=== PATIENT | female | born 1965 | race American Indian/Alaskan Native ===

== ENCOUNTER 2017-03-07 15:39 | Emergency (ER) | payer MEDICAID ==
--- NOTE | 2017-03-07 16:28 | EDM.PDOC ---
ED HPI GENERAL MEDICAL PROBLEM - General Chief Complaint: General Stated Complaint: [facility] Time Seen by Provider: 03/07/17 16:25 Source of Information: Reports: Patient, EMS Notes Reviewed History Limitations: Reports: No Limitations - History of Present Illness INITIAL COMMENTS - FREE TEXT/NARRATIVE: pt did not have a ride to dialysis on Wednesday so she did not get there. She is now sob and is having nausea and abdomanal tightness. b Onset: Today Duration: Hour(s):, Resolved Prior to Arrival Location: Reports: Chest, Abdomen Associated Symptoms: Reports: Shortness of Breath, Other (pain in abdoman. ) - Related Data Allergies Allergy/AdvReac Type Severity Reaction Status Date / Time ibuprofen Allergy Cannot Verified 04/30/14 07:57 Remember NSAIDS (Non-Steroidal Allergy Cannot Verified 04/30/14 07:57 Anti-Inflamma Remember Home Meds: Home Meds Acetaminophen [Mapap] 500 mg PO Q4HR PRN 06/06/13 [History] Aspirin 81 mg PO DAILY 06/06/13 [History] Calcium Acetate [Calcium Acetate] 2 cap PO TID 06/06/13 [History] Gabapentin [Gabapentin] 300 mg PO QAM 06/06/13 [History] Insulin Glargine,Hum.Rec.Anlog [Lantus Solostar] 20 units SQ BEDTIME 06/06/13 [ History] Lisinopril [Lisinopril] 20 mg PO BID 06/06/13 [History] amLODIPine Besylate [Amlodipine Besylate] 5 mg PO BID 06/06/13 [History] atorvaSTATin [Lipitor] 40 mg PO BEDTIME 06/06/13 [History] Albuterol/Ipratropium [Combivent Respimat] 2 puff INH QID PRN 09/04/13 [History] Darbepoetin Donavan in Polysorbat [Aranesp] 0.3 ml IJ ASDIRECTED 02/23/14 [History] tiZANidine [Zanaflex] 4 mg PO TID PRN 02/23/14 [History] busPIRone [Buspar] 5 mg PO DAILY 03/22/14 [History] Escitalopram [Lexapro] 10 mg PO DAILY 03/27/14 [History] Famotidine [Pepcid] 20 mg PO DAILY 03/27/14 [History] buPROPion [Wellbutrin] 1 tab PO BID 03/27/14 [History] cloNIDine [Catapres] 0.1 mg PO TID 03/27/14 [History] Clopidogrel [Plavix] 75 mg PO DAILY 04/27/14 [History] Metoprolol Tartrate 12.5 mg PO BID 04/27/14 [History] Past Medical History - Past Health History Medical/Surgical History: Denies Medical/Surgical History Cardiovascular History: Reports: Heart Murmur [employer]OR History: Reports: Psychiatric History: Reports: Depression Endocrine/Metabolic History: Reports: Diabetes, Type II Hematologic History: Reports: Blood Transfusion(s) - Past Surgical History GI Surgical History: Reports: Cholecystectomy Musculoskeletal Surgical History: Reports: Amputation Social & Family History - Tobacco Use Smoking Status *Q: Never Smoker Years of Tobacco use: 15 Used Tobacco, but Quit: Yes Month Tobacco Last Used: 15 Second Hand Smoke Exposure: Yes - Caffeine Use Caffeine Use: Reports: None - Alcohol Use Days Per Week of Alcohol Use: 0 Number of Drinks Per Day: 7 Total Drinks Per Week: 0 - Recreational Drug Use Recreational Drug Use: No ED ROS GENERAL - Review of Systems Review Of Systems: See Below Constitutional: Reports: No Symptoms HEENT: Reports: No Symptoms Respiratory: Reports: Shortness of Breath Cardiovascular: Reports: No Symptoms Endocrine: Reports: No Symptoms GI/Abdominal: Reports: Other (pt is having feeling of tightness in the abdoman. ) : Reports: No Symptoms Musculoskeletal: Reports: No Symptoms Skin: Reports: No Symptoms ED EXAM, GENERAL - Physical Exam Exam: See Below Free Text/Narrative:: pt arrived with sob and tightness in her abdoman. . She has been nauseated. Exam Limited By: No Limitations General Appearance: Alert, Anxious, Moderate Distress Ears: Normal TMs Nose: Normal Inspection Throat/Mouth: Normal Inspection Neck: Normal Inspection Respiratory/Chest: Decreased Breath Sounds, Rales Cardiovascular: Regular Rate, Rhythm GI/Abdominal: Other (pt feels tight. ) (Female) Exam: Deferred Rectal (Female) Exam: Deferred Back Exam: Normal Inspection Extremities: Other (pt is a bilateral amputee) Neurological: Alert, Oriented, Normal Cognition Psychiatric: Normal Affect Course - Vital Signs Last Recorded V/S: Last Vital Signs Temp 36.6 C 03/07/17 15:52 Pulse 77 03/07/17 15:52 Resp 16 03/07/17 15:52 BP 126/52 L 03/07/17 15:52 Pulse Ox 99 03/07/17 15:52 - Orders/Labs/Meds Orders: Active Orders 24 hr Category Date Time Status EKG Documentation Completion [RC] ASDIRECTED Care 03/07/17 16:54 Active Abdomen 1V Flat [CR] Stat Exams 03/07/17 16:23 Taken Chest 1V Frontal [CR] Stat Exams 03/07/17 16:18 Stop Req Chest 2V [CR] Stat Exams 03/07/17 16:23 Taken PRO B-TYPE NATRIUR PEPT,BNPPRO [CHEM] Urgent Lab 03/07/17 16:50 Received UA W/MICROSCOPIC [URIN] Urgent Lab 03/07/17 16:18 Uncollected EKG 12 Lead [EK] Routine Ther 03/07/17 16:54 Ordered Labs: Laboratory Tests 03/07/17 03/07/17 03/07/17 Range/Units 16:28 16:31 16:31 WBC 10.0 (4.5-11.0) K/uL RBC 2.62 L (3.30-5.50) M/uL Hgb 8.6 L (12.0-15.0) g/dL Hct 26.5 L (36.0-48.0) % MCV 101 H (80-98) fL MCH 33 H (27-31) pg MCHC 33 (32-36) % Plt Count 278 (150-400) K/uL Neut % (Auto) 82 H (36-66) % Lymph % (Auto) 11 L (24-44) % [place] % (Auto) 4 (2-6) % Eos % (Auto) 3 (2-4) % Baso % (Auto) 1 (0-1) % Sodium 139 L (140-148) mmol/L Potassium 7.3 H* (3.6-5.2) mmol/L Chloride 99 L (100-108) mmol/L Carbon Dioxide 27 (21-32) mmol/L Anion Gap 20.3 H (5.0-14.0) mmol/L BUN 78 H* (7-18) mg/dL Creatinine 12.1 H* (0.6-1.0) mg/dL Est Cr Clr Drug Dosing TNP Estimated GFR (MDRD) 3 L (>60) Glucose 143 H (74-106) mg/dL Calcium 7.4 L (8.5-10.1) mg/dL Total Bilirubin 0.4 (0.2-1.0) mg/dL AST 18 (15-37) U/L ALT 17 (12-78) U/L Alkaline Phosphatase 79 (46-116) U/L Total Protein 7.8 (6.4-8.2) g/dL Albumin 3.2 L (3.4-5.0) g/dL Globulin 4.6 H (2.3-3.5) g/dL Albumin/Globulin Ratio 0.7 L (1.2-2.2) Lipase 196 (73-393) U/L - Re-Assessments/Exams Free Text/Narrative Re-Assessment/Exam: 03/07/17 17:30 k was found to be 7.3. She was given kexylate 15 po. She was also given lasix 80mg iv. The case was discussed with [facility] and she will be transfered there for in patient dialysis. 03/07/17 17:39 Departure - Departure Time of Disposition: 17:41 Disposition: DC/Tfer to Acute Hospital 02 Condition: fair Clinical Impression: Renal failure, Hyperkalemia, Fluid overload - Discharge Information Forms: ED Department Discharge Care Plan Goals: transfer to [facility]-- will need medicare sales representative in route - My Orders Last 24 Hours: My Active Orders 03/07/17 16:18 Chest 1V Frontal [CR] Stat UA W/MICROSCOPIC [URIN] Urgent 03/07/17 16:23 Abdomen 1V Flat [CR] Stat Chest 2V [CR] Stat 03/07/17 16:50 PRO B-TYPE NATRIUR PEPT,BNPPRO [CHEM] Urgent 03/07/17 16:54 EKG Documentation Completion [RC] ASDIRECTED EKG 12 Lead [EK] Routine - Assessment/Plan Last 24 Hours: My Active Orders 03/07/17 16:18 Chest 1V Frontal [CR] Stat UA W/MICROSCOPIC [URIN] Urgent 03/07/17 16:23 Abdomen 1V Flat [CR] Stat Chest 2V [CR] Stat 03/07/17 16:50 PRO B-TYPE NATRIUR PEPT,BNPPRO [CHEM] Urgent 06/04/17 16:54 EKG Documentation Completion [RC] ASDIRECTED EKG 12 Lead [EK] Routine
[2017-03-07] MEDS ORDERED: Sodium Polystyrene Sulfonate 15 GM/60 ML Susp 60 ML Bot PO ONE ×2 (17:35→17:51)
[2017-03-07] MEDS ORDERED: Furosemide 40 MG/4 ML VIAL IVPUSH ONE (17:38)
[2017-03-07 18:02] VITALS: BP 125/67
--- NOTE | 2017-03-08 09:03 | CR ---
Upright abdomen There are a few scattered air-fluid levels throughout the bowel. There is no large or small bowel di stention. There is no evidence for free air. Impression: 1. No acute findings.
--- NOTE | 2017-03-08 09:06 | CR ---
2 view chest Comparison: February 2014. Shallow lung findings are demonstrated. This creates mild prominence of the cardiac silhouette and v ascular structures. There are no infiltrates or effusions. Impression: 1. Decreased lung volumes. 2. No acute findings.
== END 2017-03-07 18:26 ==
LOC: JP.ED 15:39
DX: N19 Unspecified kidney failure (principal); E87.5 Hyperkalemia; E87.70 Fluid overload, unspecified; F32.9 Major depressive disorder, single episode, unspecified; E11.9 Type 2 diabetes mellitus without complications; Z90.49 Acquired absence of other specified parts of digestive tract; Z79.02 Long term (current) use of antithrombotics/antiplatelets; Z79.82 Long term (current) use of aspirin; Z79.4 Long term (current) use of insulin; Z79.899 Other long term (current) drug therapy; Z88.8 Allergy status to other drugs, medicaments and biological substances
CPT/HCPCS: 36415; 71020; 74000; 80053; 83690; 83880; 85025; 93005; 99285; A9270; J1940; 93010

== ENCOUNTER 2017-03-22 15:54 | Emergency (ER) | payer MEDICAID ==
--- NOTE | 2017-03-22 18:01 | EDM.PDOC ---
ED HPI GENERAL MEDICAL PROBLEM - General Chief Complaint: General Stated Complaint: MED VIA AMBULANCE HAVING A HARD TIME BREATHING Time Seen by Provider: 03/22/17 17:25 Source of Information: Reports: Patient History Limitations: Reports: No Limitations - History of Present Illness INITIAL COMMENTS - FREE TEXT/NARRATIVE: Patient presents today with complaints of not having dialysis for 4 days. She reports she missed her run last . Associated Symptoms: Reports: No Other Symptoms - Related Data Allergies Allergy/AdvReac Type Severity Reaction Status Date / Time ibuprofen Allergy Cannot Verified 03/22/17 17:01 Remember NSAIDS (Non-Steroidal Allergy Cannot Verified 03/22/17 17:01 Anti-Inflamma Remember Home Meds: Home Meds Acetaminophen [Mapap] 500 mg PO Q4HR PRN 06/06/13 [History] Calcium Acetate [Calcium Acetate] 2 cap PO TID 06/06/13 [History] Gabapentin [Gabapentin] 300 mg PO QAM 06/06/13 [History] Insulin Glargine,Hum.Rec.Anlog [Lantus Solostar] 20 units SQ BEDTIME 06/06/13 [ History] Lisinopril [Lisinopril] 20 mg PO BID 06/06/13 [History] RX: Aspirin 81 mg PO DAILY 06/06/13 [History] amLODIPine Besylate [Amlodipine Besylate] 5 mg PO BID 06/06/13 [History] atorvaSTATin [Lipitor] 40 mg PO BEDTIME 06/06/13 [History] Albuterol/Ipratropium [Combivent Respimat] 2 puff INH QID PRN 09/04/13 [History] Darbepoetin [place] in Polysorbat [Aranesp] 0.3 ml IJ ASDIRECTED 02/23/14 [History] RX: tiZANidine [Zanaflex] 4 mg PO TID PRN 02/23/14 [History] busPIRone [Buspar] 5 mg PO DAILY 03/22/14 [History] Escitalopram [Lexapro] 10 mg PO DAILY 03/27/14 [History] Famotidine [Pepcid] 20 mg PO DAILY 03/27/14 [History] RX: cloNIDine [Catapres] 0.1 mg PO TID 03/27/14 [History] buPROPion [Wellbutrin] 1 tab PO BID 03/27/14 [History] Clopidogrel [Plavix] 75 mg PO DAILY 04/27/14 [History] RX: Metoprolol Tartrate 12.5 mg PO BID 04/27/14 [History] Past Medical History - Past Health History Medical/Surgical History: Denies Medical/Surgical History HEENT History: Reports: Cataract, Impaired Vision Cardiovascular History: Reports: CAD, Heart Murmur, High Cholesterol, Hypertension Respiratory History: Reports: Pneumonia, Recurrent, Other (See Below) Other Respiratory History: reactive airway Gastrointestinal History: Reports: Cholelithiasis, GERD, GI Bleed, Other (See Below) Other Gastrointestinal History: bleeding ulcer Genitourinary History: Reports: Acute Renal Failure, Dialysis Other Genitourinary History: Dialysis 3 times a week since 2013 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: , Spontaneous Psychiatric History: Reports: Addiction, Anxiety, Depression, Panic Attack Endocrine/Metabolic History: Reports: Diabetes, Type II Hematologic History: Reports: Blood Transfusion(s) - Infectious Disease History Infectious Disease History: Reports: Other (See Below) Other Infectious Disease History: unknown - Past Surgical History GI Surgical History: Reports: Cholecystectomy, Colonoscopy, EGD Musculoskeletal Surgical History: Reports: Amputation Other Musculoskeletal Surgeries/Procedures:: bilateral above the knee Social & Family History - Tobacco Use Smoking Status *Q: Former Smoker Years of Tobacco use: 15 Used Tobacco, but Quit: Yes Month Tobacco Last Used: 10 years ago Second Hand Smoke Exposure: Yes - Caffeine Use Caffeine Use: Reports: Coffee, Soda - Alcohol Use Days Per Week of Alcohol Use: 0 Number of Drinks Per Day: 7 Total Drinks Per Week: 0 - Recreational Drug Use Recreational Drug Use: No Recreational Drug Type: Reports: Amphetamines (Speed) ED [facility] GENERAL - Review of Systems Review Of Systems: See Below Constitutional: Reports: Malaise, Weakness, Fatigue. Denies: Fever, Chills, Night Sweats, Diaphoresis HEENT: Reports: No Symptoms Respiratory: Denies: Shortness of Breath, Wheezing, Cough, Hemoptysis Cardiovascular: Denies: Chest Pain, Dyspnea on Exertion, Edema, Lightheadedness , Orthopnea, Palpitations, PND, Syncope Endocrine: Reports: Fatigue GI/Abdominal: Denies: Abdominal Pain, Difficulty Swallowing, Hematemesis, Nausea , Vomiting : Reports: No Symptoms Musculoskeletal: Reports: No Symptoms Skin: Reports: Bruising, Other (Bruising to RLQ, patient reprots I've had that, I didn't get hurt. ). Denies: Cyanosis, Jaundice, Mottled, Rash, Erythema, Wound, Lesions Neurological: Denies: Confusion, Dizziness, Headache, Numbness, Paresthesia, Syncope, Tingling, Weakness, Change in Speech Psychiatric: Reports: No Symptoms Hematologic/Lymphatic: Reports: No Symptoms Immunologic: Reports: No Symptoms ED EXAM, GENERAL - Physical Exam Exam: See Below Exam Limited By: No Limitations General Appearance: Alert, WD/WN, No Apparent Distress, Obese, Other (Patient states, "I feel tired". ) Eye Exam: Bilateral Eye: Normal Inspection, PERRL Ears: Normal External Exam, Normal Canal, Hearing Grossly Normal, Normal TMs Ear Exam: Bilateral Ear: Auricle Normal, Canal Normal, TM normal Nose: Normal Inspection, Normal Mucosa, No Blood Throat/Mouth: Normal Inspection, Normal Lips, Normal Teeth, Normal Gums, Normal Oropharynx, Normal Voice, No Airway Compromise Head: Atraumatic, Normocephalic Neck: Normal Inspection, Supple, Non-Tender, Full Range of Motion Respiratory/Chest: No Respiratory Distress, No Accessory Muscle Use, Chest Non- Tender, Decreased Breath Sounds Cardiovascular: Normal Peripheral Pulses, No Edema, No Gallop, No Rub, Other ( Slight murmur noted. EKG shows Mobitz type two heart block, rate of 64 bpm. ) GI/Abdominal: Normal Bowel Sounds, Soft, Non-Tender, No Organomegaly, No Mass, Other (large, round) Back Exam: Normal Inspection, Full Range of Motion. No: CVA Tenderness (R), CVA Tenderness (L) Extremities: Normal Inspection, Normal Range of Motion, Non-Tender, Normal Capillary Refill, Other (Bilateral lower leg amputee. ) Neurological: Alert, Oriented, CN II-XII Intact, Normal Cognition, Other ( sleepy at times.) Skin Exam: Warm, Dry, Intact, Normal Color, No Rash Lymphatic: No Adenopathy EKG INTERPRETATION EKG Date: 03/22/17 Rhythm: Other (Mobitz type two heart block.) P-Wave: Present QRS: Normal Course - Vital Signs Last Recorded V/S: Last Vital Signs Temp 36.1 C 03/22/17 16:58 Pulse 67 03/22/17 17:37 Resp 14 03/22/17 17:37 BP 209/109 H 03/22/17 17:37 Pulse Ox 95 03/22/17 17:37 - Orders/Labs/Meds Orders: Active Orders 24 hr Category Date Time Status Cardiac Monitoring [RC] .As Directed Care 03/22/17 18:17 Active EKG Documentation Completion [RC] ASDIRECTED Care 03/22/17 17:08 Active Sodium Chloride 0.9% [Saline Flush] Med 03/22/17 18:17 Active 10 ml FLUSH ASDIRECTED PRN Saline Lock Insert [OM.PC] Routine Oth 03/22/17 18:17 Ordered EKG 12 Lead [EK] Routine Ther 03/22/17 17:07 Ordered Medication Orders Sodium Chloride (Saline Flush) 10 ml FLUSH ASDIRECTED PRN PRN Reason: Keep Vein Open Last Admin: 03/22/17 18:43 Dose: 10 ml Labs: Laboratory Tests 03/22/17 03/22/17 03/22/17 Range/Units 17:28 17:28 17:28 WBC 8.2 (4.5-11.0) K/uL RBC 2.58 L (3.30-5.50) M/uL Hgb 8.4 L (12.0-15.0) g/dL Hct 26.1 L (36.0-48.0) % MCV 101 H (80-98) fL MCH 33 H (27-31) pg MCHC 32 (32-36) % Plt Count 265 (150-400) K/uL Neut % (Auto) 72 H (36-66) % Lymph % (Auto) 17 L (24-44) % [place]ard % (Auto) 7 H (2-6) % Eos % (Auto) 4 (2-4) % Baso % (Auto) 0 (0-1) % Puncture Site ABG pH (7.350-7.450) ABG pCO2 (35.0-42.0) mmHg ABG pO2 (75.0-100.0) mmHg ABG HCO3 (22.0-26.0) mmol/L ABG Total CO2 (21.0-25.0) mmol/L ABG O2 Saturation (95.0-98.0) % ABG O2 Content (15.0-23.0) %vol ABG Base Excess mm/L ABG Hemoglobin (12.0-16.0) g/dL ABG Oxyhemoglobin % ABG Carboxyhemoglobin (0.0-1.6) % ABG Methemoglobin % Chris Test O2 Delivery Device Sodium 142 (140-148) mmol/L Potassium 5.3 H (3.6-5.2) mmol/L Chloride 102 (100-108) mmol/L Carbon Dioxide 28 (21-32) mmol/L Anion Gap 17.3 H (5.0-14.0) mmol/L BUN 84 H* (7-18) mg/dL Creatinine 11.5 H* (0.6-1.0) mg/dL Est Cr Clr Drug Dosing TNP Estimated GFR (MDRD) 3 L (>60) Glucose 165 H (74-106) mg/dL Calcium 8.1 L (8.5-10.1) mg/dL Total Bilirubin 0.4 (0.2-1.0) mg/dL AST 14 L (15-37) U/L ALT 10 L (12-78) U/L Alkaline Phosphatase 83 (46-116) U/L Ammonia (11-32) mmol/L [id number] Pept 11724 H (5-125) pg/mL Total Protein 7.3 (6.4-8.2) g/dL Albumin 3.0 L (3.4-5.0) g/dL Globulin 4.3 H (2.3-3.5) g/dL Albumin/Globulin Ratio 0.7 L (1.2-2.2) 03/22/17 03/22/17 Range/Units 17:30 17:30 WBC (4.5-11.0) K/uL RBC (3.30-5.50) M/uL Hgb (12.0-15.0) g/dL Hct (36.0-48.0) % MCV (80-98) fL MCH (27-31) pg MCHC (32-36) % Plt Count (150-400) K/uL Neut % (Auto) (36-66) % Lymph % (Auto) (24-44) % [place]ard % (Auto) (2-6) % Eos % (Auto) (2-4) % Baso % (Auto) (0-1) % Puncture Site Rt radial ABG pH 7.431 (7.350-7.450) ABG pCO2 39.1 (35.0-42.0) mmHg ABG pO2 67.2 L (75.0-100.0) mmHg ABG HCO3 25.5 (22.0-26.0) mmol/L ABG Total CO2 24.3 (21.0-25.0) mmol/L ABG O2 Saturation 92.7 L (95.0-98.0) % ABG O2 Content 10.1 L (15.0-23.0) %vol ABG Base Excess 1.7 mm/L ABG Hemoglobin 7.8 L (12.0-16.0) g/dL ABG Oxyhemoglobin 90.7 % ABG Carboxyhemoglobin 1.3 (0.0-1.6) % ABG Methemoglobin 0.9 % Chris Test Passed O2 Delivery Device Room air Sodium (140-148) mmol/L Potassium (3.6-5.2) mmol/L Chloride (100-108) mmol/L Carbon Dioxide (21-32) mmol/L Anion Gap (5.0-14.0) mmol/L BUN (7-18) mg/dL Creatinine (0.6-1.0) mg/dL Est Cr Clr Drug Dosing Estimated GFR (MDRD) (>60) Glucose (74-106) mg/dL Calcium (8.5-10.1) mg/dL Total Bilirubin (0.2-1.0) mg/dL AST (15-37) U/L ALT (12-78) U/L Alkaline Phosphatase (46-116) U/L Ammonia 13 (11-32) mmol/L [id number] Pept (5-125) pg/mL Total Protein (6.4-8.2) g/dL Albumin (3.4-5.0) g/dL Globulin (2.3-3.5) g/dL Albumin/Globulin Ratio (1.2-2.2) Will place patient on 1 to 2 L O2 per nasal cannula. Meds: Medications Generic Name Dose Route Start Last Admin Trade Name Freq PRN Reason Stop Dose Admin Sodium Chloride 10 ml 03/22/17 18:17 03/22/17 18:43 Saline Flush FLUSH 10 ml ASDIRECTED PRN Administration Keep Vein Open - Re-Assessments/Exams Free Text/Narrative Re-Assessment/Exam: 03/22/17 1800 Patient notified of lab work, need for dialysis. All her questions were answered, she is in agreement with plan. 03/22/17 18:25 [facility] notified of patient status. Dr. Willett accepts patient. Patient will be a direct admission to med-surg. Patient in agreement with plan. Departure - Departure Time of Disposition: 18:25 Disposition: DC/Tfer to Medicaid Nur Fac 64 Condition: Poor Clinical Impression: Chronic kidney disease (CKD), CHF (congestive heart failure), Dialysis patient , noncompliant - Discharge Information Referrals: PCP,None [Primary Care Provider] - Forms: ED Department Discharge - My Orders Last 24 Hours: My Active Orders 03/22/17 17:07 EKG 12 Lead [EK] Routine 03/22/17 17:08 EKG Documentation Completion [RC] ASDIRECTED 03/22/17 18:17 Cardiac Monitoring [RC] .As Directed Sodium Chloride 0.9% [Saline Flush] 10 ml FLUSH ASDIRECTED PRN Saline Lock Insert [OM.PC] Routine - Assessment/Plan Last 24 Hours: My Active Orders 03/22/17 17:07 EKG 12 Lead [EK] Routine 03/22/17 17:08 EKG Documentation Completion [RC] ASDIRECTED 03/22/17 18:17 Cardiac Monitoring [RC] .As Directed Sodium Chloride 0.9% [Saline Flush] 10 ml FLUSH ASDIRECTED PRN Saline Lock Insert [OM.PC] Routine Assessment:: Noncompliance with dialysis CKD CHF Plan: Patient will be transferred to [facility]. She was accepted per Dr. Willett to be admitted to med-surg.
[2017-03-22] MEDS ORDERED: Sodium Chloride 0.9% 10 ML Syringe FLUSH PRN (18:17)
[2017-03-22 19:11] VITALS: BP 195/100
== END 2017-03-22 19:31 ==
LOC: JP.ED 15:54
DX: I13.0 Hypertensive heart and chronic kidney disease with heart failure and stage 1 through stage 4 chronic kidney disease, or unspecified chronic kidney disease (principal); E11.22 Type 2 diabetes mellitus with diabetic chronic kidney disease; N18.9 Chronic kidney disease, unspecified; I50.9 Heart failure, unspecified; Z99.2 Dependence on renal dialysis; E78.00 Pure hypercholesterolemia, unspecified; K21.9 Gastro-esophageal reflux disease without esophagitis; F41.9 Anxiety disorder, unspecified; F32.9 Major depressive disorder, single episode, unspecified; Z90.49 Acquired absence of other specified parts of digestive tract; Z79.4 Long term (current) use of insulin; Z79.899 Other long term (current) drug therapy; Z88.6 Allergy status to analgesic agent; Z88.8 Allergy status to other drugs, medicaments and biological substances
CPT/HCPCS: 36415; 80053; 82140; 82803; 83880; 85025; 93005; 99284; J7050; 36600; 93010; 99285

== ENCOUNTER 2017-10-10 21:31 | Emergency (ER) | payer MEDICAID ==
[~2017-10-10 21:31] MED LIST: LORazepam 2 MG/ML MDV ONE
[2017-10-10] MEDS ORDERED: LORazepam 2 MG/ML MDV IVPUSH ONE ×2 (21:33→21:36)
[2017-10-10] MEDS ORDERED: Sodium Chloride 0.9% 1,000 ML IV SCH (21:45)
[2017-10-10 22:27] VITALS: BP 208/84
[2017-10-10] MEDS ORDERED: Sodium Polystyrene Sulfonate 15 GM/60 ML Susp 60 ML Bot PO ONE (22:38)
--- NOTE | 2017-10-10 22:43 | EDM.PDOC ---
ED HPI GENERAL MEDICAL PROBLEM - General Chief Complaint: Neurological Problem Stated Complaint: ILLNESS Time Seen by Provider: 10/10/17 22:25 Source of Information: Reports: Patient History Limitations: Reports: Other (pt is not able to give a history. She is not a regular pt here. She had a sizure shortly after arrival. She normally does not have seizure activity. There is no record when she had here last dialysis) - History of Present Illness Onset: Gradual Duration: Hour(s): Location: Reports: Other ( Pt has sizure activity. ) Associated Symptoms: Reports: Confusion, Seizure - Related Data Allergies Allergy/AdvReac Type Severity Reaction Status Date / Time ibuprofen Allergy Cannot Verified 03/22/17 17:01 Remember NSAIDS (Non-Steroidal Allergy Cannot Verified 03/22/17 17:01 Anti-Inflamma Remember Home Meds: Home Meds Acetaminophen [Mapap] 500 mg PO Q4HR PRN 06/06/13 [History] Aspirin 81 mg PO DAILY 06/06/13 [History] Calcium Acetate [Calcium Acetate] 2 cap PO TID 06/06/13 [History] Gabapentin [Gabapentin] 300 mg PO QAM 06/06/13 [History] Insulin Glargine,Hum.Rec.Anlog [Lantus Solostar] 20 units SQ BEDTIME 06/06/13 [ History] Lisinopril [Lisinopril] 20 mg PO BID 06/06/13 [History] amLODIPine Besylate [Amlodipine Besylate] 5 mg PO BID 06/06/13 [History] atorvaSTATin [Lipitor] 40 mg PO BEDTIME 06/06/13 [History] Albuterol/Ipratropium [Combivent Respimat] 2 puff INH QID PRN 09/04/13 [History] Darbepoetin Donavan in Polysorbat [Aranesp] 0.3 ml IJ ASDIRECTED 02/23/14 [History] tiZANidine [Zanaflex] 4 mg PO TID PRN 02/23/14 [History] busPIRone [Buspar] 5 mg PO DAILY 03/22/14 [History] Escitalopram [Lexapro] 10 mg PO DAILY 03/27/14 [History] Famotidine [Pepcid] 20 mg PO DAILY 03/27/14 [History] buPROPion [Wellbutrin] 1 tab PO BID 03/27/14 [History] cloNIDine [Catapres] 0.1 mg PO TID 03/27/14 [History] Clopidogrel [Plavix] 75 mg PO DAILY 04/27/14 [History] Metoprolol Tartrate 12.5 mg PO BID 04/27/14 [History] Past Medical History - Past Health History Medical/Surgical History: Denies Medical/Surgical History HEENT History: Reports: Cataract, Impaired Vision Cardiovascular History: Reports: CAD, Heart Murmur, High Cholesterol, Hypertension Respiratory History: Reports: Pneumonia, Recurrent, Other (See Below) Other Respiratory History: reactive airway Gastrointestinal History: Reports: Cholelithiasis, GERD, GI Bleed, Other (See Below) Other Gastrointestinal History: bleeding ulcer Genitourinary History: Reports: Acute Renal Failure, Dialysis Other Genitourinary History: Dialysis 3 times a week since 2013 [employer] History: Reports: , Spontaneous Psychiatric History: Reports: Addiction, Anxiety, Depression, Panic Attack Endocrine/Metabolic History: Reports: Diabetes, Type II Hematologic History: Reports: Blood Transfusion(s) - Infectious Disease History Infectious Disease History: Reports: Other (See Below) Other Infectious Disease History: unknown - Past Surgical History GI Surgical History: Reports: Cholecystectomy, Colonoscopy, EGD Musculoskeletal Surgical History: Reports: Amputation Other Musculoskeletal Surgeries/Procedures:: bilateral above the knee Social & Family History - Tobacco Use Smoking Status *Q: Unknown Ever Smoked Years of Tobacco use: 15 Used Tobacco, but Quit: Yes Month Tobacco Last Used: 10 years ago Second Hand Smoke Exposure: Yes - Caffeine Use Caffeine Use: Reports: Coffee, Soda - Alcohol Use Days Per Week of Alcohol Use: 0 Number of Drinks Per Day: 7 Total Drinks Per Week: 0 - Recreational Drug Use Recreational Drug Use: No Recreational Drug Type: Reports: Amphetamines (Speed) ED ROS GENERAL - Review of Systems Review Of Systems: See Below Constitutional: Reports: No Symptoms HEENT: Reports: No Symptoms Respiratory: Reports: No Symptoms Cardiovascular: Reports: No Symptoms Endocrine: Reports: No Symptoms GI/Abdominal: Reports: No Symptoms : Reports: No Symptoms Musculoskeletal: Reports: Hand Pain Neurological: Reports: Confusion, Seizure, Other Psychiatric: Reports: Anxiety ED EXAM, NEURO - Physical Exam Exam: See Below Text/Narrative:: Pt had a seizure shortly after arrival. She was posictal when she was examined. She evidently had missd her dialysis. She is a diabetic and is a bilateral amputee Exam Limited By: Other (not able to get a acurate history.) General Appearance: Mild Distress, Other (pupils are equal and ractive. ) Ears: Normal TMs Nose: Normal Inspection Throat/Mouth: Other (pt had chewed her tongue) Head Exam: Atraumatic Neck: Other (multiple ) Respiratory/Chest: No Respiratory Distress Cardiovascular: Other ( slightly irregular. Pacs. ) GI/Abdominal: Soft, Non-Tender (Female) Exam: Deferred Rectal (Female) Exam: Deferred Neurological: Other (pt was post ictal. ) Back Exam: Normal Inspection Extremities: Other (pt is a bilateral amputee) Psychiatric: Other (pt was post ictal. ) Course - Vital Signs Last Recorded V/S: Last Vital Signs Temp 36.8 C 10/10/17 22:24 Pulse 85 10/10/17 22:24 Resp 12 10/10/17 22:24 BP 208/84 H 10/10/17 22:24 Pulse Ox 98 10/10/17 22:24 - Orders/Labs/Meds Orders: Active Orders 24 hr Category Date Time Status EKG Documentation Completion [RC] ASDIRECTED Care 10/10/17 21:35 Active Chest 1V Frontal [CR] Stat Exams 10/10/17 21:37 Taken Head wo Cont [CT] Stat Exams 10/10/17 21:44 Taken Sodium Chloride 0.9% [Normal Saline] 1,000 ml Med 10/10/17 21:45 Active IV ASDIRECTED EKG 12 Lead [EK] Routine Ther 10/10/17 21:35 Ordered Medication Orders Sodium Chloride (Normal Saline) 1,000 mls @ 150 mls/hr IV ASDIRECTED IRMA Last Admin: 10/10/17 22:18 Dose: 150 mls/hr Labs: Laboratory Tests 10/10/17 10/10/17 10/10/17 Range/Units 21:41 21:41 21:41 WBC 12.1 H (4.5-11.0) K/uL RBC 4.08 (3.30-5.50) M/uL Hgb 12.2 D (12.0-15.0) g/dL Hct 37.2 (36.0-48.0) % MCV 91 (80-98) fL MCH 30 (27-31) pg MCHC 33 (32-36) % Plt Count 237 (150-400) K/uL Neut % (Auto) 64 (36-66) % Lymph % (Auto) 21 L (24-44) % Monroe % (Auto) 5 (2-6) % Eos % (Auto) 9 H (2-4) % Baso % (Auto) 0 (0-1) % Sodium 137 L (140-148) mmol/L Potassium 6.2 H* (3.6-5.2) mmol/L Chloride 93 L (100-108) mmol/L Carbon Dioxide 23 (21-32) mmol/L Anion Gap 27.2 H (5.0-14.0) mmol/L BUN 94 H* (7-18) mg/dL Creatinine 12.7 H* (0.6-1.0) mg/dL Est Cr Clr Drug Dosing TNP Estimated GFR (MDRD) 3 L (>60) Glucose 93 (74-106) mg/dL Calcium 8.0 L (8.5-10.1) mg/dL Total Bilirubin 0.8 D (0.2-1.0) mg/dL AST 41 H D (15-37) U/L ALT 85 H (12-78) U/L Alkaline Phosphatase 116 (46-116) U/L Total Protein 8.3 H (6.4-8.2) g/dL Albumin 3.5 (3.4-5.0) g/dL Globulin 4.8 H (2.3-3.5) g/dL Albumin/Globulin Ratio 0.7 L (1.2-2.2) Urine Color Urine Appearance Urine pH (4.5-8.0) Ur Specific [place] (1.008-1.030) Urine Protein (NEGATIVE) mg/dL Urine Glucose (UA) (NEGATIVE) mg/dL Urine Ketones (NEGATIVE) mg/dL Urine Occult Blood (NEGATIVE) Urine Nitrite (NEGATIVE) Urine Bilirubin (NEGATIVE) Urine Urobilinogen (NORMAL) mg/dL Ur Leukocyte Esterase (NEGATIVE) Urine RBC (0-5) Urine WBC (0-5) Ur Epithelial Cells Amorphous Sediment Urine Bacteria Urine Mucus Urine Opiates Screen (NEGATIVE) Ur Oxycodone Screen (NEGATIVE) Urine Methadone Screen (NEGATIVE) Ur Propoxyphene Screen (NEGATIVE) Ur Barbiturates Screen (NEGATIVE) Ur Tricyclics Screen (NEGATIVE) Ur Phencyclidine Scrn (NEGATIVE) Ur Amphetamine Screen (NEGATIVE) U Methamphetamines Scrn (NEGATIVE) Urine MDMA Screen (NEGATIVE) U Benzodiazepines Scrn (NEGATIVE) U Cocaine Metab Screen (NEGATIVE) U Marijuana (THC) Screen (NEGATIVE) Ethyl Alcohol 3 mg/dL 10/10/17 10/10/17 Range/Units 22:03 22:03 WBC (4.5-11.0) K/uL RBC (3.30-5.50) M/uL Hgb (12.0-15.0) g/dL Hct (36.0-48.0) % MCV (80-98) fL MCH (27-31) pg MCHC (32-36) % Plt Count (150-400) K/uL Neut % (Auto) (36-66) % Lymph % (Auto) (24-44) % Monroe % (Auto) (2-6) % Eos % (Auto) (2-4) % Baso % (Auto) (0-1) % Sodium (140-148) mmol/L Potassium (3.6-5.2) mmol/L Chloride (100-108) mmol/L Carbon Dioxide (21-32) mmol/L Anion Gap (5.0-14.0) mmol/L BUN (7-18) mg/dL Creatinine (0.6-1.0) mg/dL Est Cr Clr Drug Dosing Estimated GFR (MDRD) (>60) Glucose (74-106) mg/dL Calcium (8.5-10.1) mg/dL Total Bilirubin (0.2-1.0) mg/dL AST (15-37) U/L ALT (12-78) U/L Alkaline Phosphatase (46-116) U/L Total Protein (6.4-8.2) g/dL Albumin (3.4-5.0) g/dL Globulin (2.3-3.5) g/dL Albumin/Globulin Ratio (1.2-2.2) Urine Color Yellow Urine Appearance Clear Urine pH 8.0 (4.5-8.0) Ur Specific [place] 1.015 (1.008-1.030) Urine Protein 500 H (NEGATIVE) mg/dL Urine Glucose (UA) 50 H (NEGATIVE) mg/dL Urine Ketones Negative (NEGATIVE) mg/dL Urine Occult Blood Negative (NEGATIVE) Urine Nitrite Negative (NEGATIVE) Urine Bilirubin Negative (NEGATIVE) Urine Urobilinogen Normal (NORMAL) mg/dL Ur Leukocyte Esterase Negative (NEGATIVE) Urine RBC 0-5 (0-5) Urine WBC 0-5 (0-5) Ur Epithelial Cells Rare Amorphous Sediment Not seen Urine Bacteria Rare Urine Mucus Not seen Urine Opiates Screen Positive H (NEGATIVE) Ur Oxycodone Screen Negative (NEGATIVE) Urine Methadone Screen Negative (NEGATIVE) Ur Propoxyphene Screen Negative (NEGATIVE) Ur Barbiturates Screen Negative (NEGATIVE) Ur Tricyclics Screen Negative (NEGATIVE) Ur Phencyclidine Scrn Negative (NEGATIVE) Ur Amphetamine Screen Negative (NEGATIVE) U Methamphetamines Scrn Negative (NEGATIVE) Urine MDMA Screen Negative (NEGATIVE) U Benzodiazepines Scrn Negative (NEGATIVE) U Cocaine Metab Screen Negative (NEGATIVE) U Marijuana (THC) Screen Negative (NEGATIVE) Ethyl Alcohol mg/dL Meds: Medications Generic Name Dose Route Start Last Admin Trade Name Freq PRN Reason Stop Dose Admin Sodium Chloride 1,000 mls @ 150 mls/hr 10/10/17 21:45 10/10/17 22:18 Normal Saline IV 150 mls/hr ASDIRECTED IRMA Administration Discontinued Medications Generic Name Dose Route Start Last Admin Trade Name Freq PRN Reason Stop Dose Admin Labetalol HCl 20 mg 10/10/17 22:54 Normodyne IVPUSH 10/10/17 22:55 NOW ONE Protocol Lorazepam 0.5 mg 10/10/17 21:33 10/10/17 22:17 Ativan IVPUSH 10/10/17 21:34 0.5 mg ONETIME ONE Administration Lorazepam 0.5 mg 10/10/17 21:36 10/10/17 22:18 Ativan IVPUSH 10/10/17 21:37 0.5 mg ONETIME ONE Administration Sodium Polystyrene Sulfonate 30 gm 10/10/17 22:38 Kayexalate PO 10/10/17 22:39 ONETIME ONE Sodium Polystyrene Sulfonate 45 gm 10/10/17 22:54 Kayexalate RECTAL 10/10/17 22:55 NOW ONE - Re-Assessments/Exams Free Text/Narrative Re-Assessment/Exam: 10/10/17 23:08 pt was given 1 mg of ativan. -- for the seizure activity. She has fluids running at 150, She was given kexlate 45 mg rectally. Labatiol was given 20mg iv. Departure - Departure Time of Disposition: 23:10 Disposition: DC/Tfer to Acute Hospital 02 Condition: Fair Clinical Impression: Hyperkalemia, Renal failure, Seizure - Discharge Information Referrals: PCP,None [Primary Care Provider] - Forms: ED Department Discharge Care Plan Goals: transfer to [facility] - My Orders Last 24 Hours: My Active Orders 10/10/17 21:35 EKG Documentation Completion [RC] ASDIRECTED EKG 12 Lead [EK] Routine 10/10/17 21:37 Chest 1V Frontal [CR] Stat 10/10/17 21:44 Head wo Cont [CT] Stat 10/10/17 21:45 Sodium Chloride 0.9% [Normal Saline] 1,000 ml IV ASDIRECTED - Assessment/Plan Last 24 Hours: My Active Orders 10/10/17 21:35 EKG Documentation Completion [RC] ASDIRECTED EKG 12 Lead [EK] Routine 10/10/17 21:37 Chest 1V Frontal [CR] Stat 10/10/17 21:44 Head wo Cont [CT] Stat 10/10/17 21:45 Sodium Chloride 0.9% [Normal Saline] 1,000 ml IV ASDIRECTED
[2017-10-10] MEDS ORDERED: Labetalol 20 MG/4 ML Syringe IVPUSH ONE (22:54)
[2017-10-10] MEDS ORDERED: Sodium Polystyrene Sulfonate 15 GM/60 ML Susp 60 ML Bot RECTAL ONE (22:54)
[2017-10-10] MEDS ORDERED: Sodium Polystyrene Sulfonate 15 GM/60 ML Susp 60 ML Bot ONE (23:00)
--- NOTE | 2017-10-11 10:23 | CR ---
Chest 1V Frontal HISTORY: Shortness of breath COMPARISON: 10/07/2016. FINDINGS: Left-sided dialysis type catheter. Stable mild cardiomegaly. Very faint interstitial change s in the mid and lower lung zones computer present mild interstitial edema or inflammatory process.
== END 2017-10-10 23:46 ==
LOC: JP.ED 21:31
DX: R56.9 Unspecified convulsions (principal); E87.5 Hyperkalemia; N19 Unspecified kidney failure; I10 Essential (primary) hypertension; E11.9 Type 2 diabetes mellitus without complications; E78.00 Pure hypercholesterolemia, unspecified; K21.9 Gastro-esophageal reflux disease without esophagitis; Z88.6 Allergy status to analgesic agent; Z88.8 Allergy status to other drugs, medicaments and biological substances; Z79.899 Other long term (current) drug therapy; Z79.82 Long term (current) use of aspirin; Z79.4 Long term (current) use of insulin; Z77.22 Contact with and (suspected) exposure to environmental tobacco smoke (acute) (chronic)
CPT/HCPCS: 36415; 70450; 71045; 80053; 80305; 81001; 82962; 85025; 93005; 96361; 96374; 96375; 99285; A9270; G0480; J2060; J7040; 93010; 99284

== ENCOUNTER 2017-11-16 18:49 | Emergency (ER) | payer MEDICAID, OTHER ==
--- NOTE | 2017-11-16 18:55 | EDM.PDOC ---
ED HPI GENERAL MEDICAL PROBLEM - General Chief Complaint: Respiratory Problem Stated Complaint: MEDICAL [facility] Time Seen by Provider: 11/16/17 18:50 Source of Information: Reports: Patient, EMS, Old Records History Limitations: Reports: No Limitations - History of Present Illness INITIAL COMMENTS - FREE TEXT/NARRATIVE: 52 yo female dialysis patient arrives from her home via EMS for mild SOB. Missed her last dialysis appt due to failure of her ride to show up. No other complaints at this time. Oximetry low 90's on room air en route per EMS. Claims she's taking her meds as prescribed. Onset: Today Onset Date: 11/16/17 Duration: Hour(s):, Getting Worse Location: Reports: Chest (lungs) Quality: Reports: Other (no pain reported.) Severity: Mild Improves with: Reports: Rest, Other (oxygen per EMS) Worsens with: Reports: Movement Context: Reports: Other (Missed last dialysis appt) Associated Symptoms: Reports: No Other Symptoms Treatments RURAL SOCIOLOGIST: Reports: Oxygen Sacral Pain Score (Numeric/FACES): 5 - Related Data Allergies Allergy/AdvReac Type Severity Reaction Status Date / Time ibuprofen Allergy Cannot Verified 03/22/17 17:01 Remember NSAIDS (Non-Steroidal Allergy Cannot Verified 03/22/17 17:01 Anti-Inflamma Remember Home Meds: Home Meds Acetaminophen [Mapap] 500 mg PO Q4HR PRN 06/06/13 [History] Aspirin 81 mg PO DAILY 06/06/13 [History] Calcium Acetate [Calcium Acetate] 2 cap PO TID 06/06/13 [History] Gabapentin [Gabapentin] 300 mg PO QAM 06/06/13 [History] Insulin Glargine,Hum.Rec.Anlog [Lantus Solostar] 20 units SQ BEDTIME 06/06/13 [ History] Lisinopril [Lisinopril] 20 mg PO BID 06/06/13 [History] amLODIPine Besylate [Amlodipine Besylate] 5 mg PO BID 06/06/13 [History] atorvaSTATin [Lipitor] 40 mg PO BEDTIME 06/06/13 [History] Albuterol/Ipratropium [Combivent Respimat] 2 puff INH QID PRN 09/04/13 [History] Darbepoetin [place] in Polysorbat [Aranesp] 0.3 ml IJ ASDIRECTED 02/23/14 [History] tiZANidine [Zanaflex] 4 mg PO TID PRN 02/23/14 [History] busPIRone [Buspar] 5 mg PO DAILY 03/22/14 [History] Escitalopram [Lexapro] 10 mg PO DAILY 03/27/14 [History] Famotidine [Pepcid] 20 mg PO DAILY 03/27/14 [History] buPROPion [Wellbutrin] 1 tab PO BID 03/27/14 [History] cloNIDine [Catapres] 0.1 mg PO TID 03/27/14 [History] Clopidogrel [Plavix] 75 mg PO DAILY 04/27/14 [History] Metoprolol Tartrate 12.5 mg PO BID 04/27/14 [History] Past Medical History - Past Health History Medical/Surgical History: Denies Medical/Surgical History HEENT History: Reports: Cataract, Impaired Vision Cardiovascular History: Reports: CAD, Heart Murmur, High Cholesterol, Hypertension Respiratory History: Reports: Pneumonia, Recurrent, Other (See Below) Other Respiratory History: reactive airway Gastrointestinal History: Reports: Cholelithiasis, GERD, GI Bleed, Other (See Below) Other Gastrointestinal History: bleeding ulcer Genitourinary History: Reports: Acute Renal Failure, Dialysis Other Genitourinary History: Dialysis 3 times a week since 2013 [employer]ANE [employer] History: Reports: , Spontaneous Psychiatric History: Reports: Addiction, Anxiety, Depression, Panic Attack Endocrine/Metabolic History: Reports: Diabetes, Type II Hematologic History: Reports: Blood Transfusion(s) - Infectious Disease History Infectious Disease History: Reports: Other (See Below) Other Infectious Disease History: unknown - Past Surgical History GI Surgical History: Reports: Cholecystectomy, Colonoscopy, EGD Musculoskeletal Surgical History: Reports: Amputation Other Musculoskeletal Surgeries/Procedures:: bilateral above the knee Social & Family History - Tobacco Use Smoking Status *Q: Unknown Ever Smoked Years of Tobacco use: 15 Used Tobacco, but Quit: Yes Month Tobacco Last Used: 10 years ago Second Hand Smoke Exposure: Yes - Caffeine Use Caffeine Use: Reports: Coffee, Soda - Alcohol Use Days Per Week of Alcohol Use: 0 Number of Drinks Per Day: 7 Total Drinks Per Week: 0 - Recreational Drug Use Recreational Drug Use: No Recreational Drug Type: Reports: Amphetamines (Speed) ED ROS GENERAL - Review of Systems Review Of Systems: See Below Constitutional: Reports: No Symptoms HEENT: Reports: No Symptoms Respiratory: Reports: Shortness of Breath Cardiovascular: Reports: No Symptoms Endocrine: Reports: No Symptoms GI/Abdominal: Reports: No Symptoms : Reports: No Symptoms Musculoskeletal: Reports: No Symptoms Skin: Reports: No Symptoms Neurological: Reports: No Symptoms Psychiatric: Reports: No Symptoms ED EXAM, GENERAL - Physical Exam Exam: See Below Exam Limited By: No Limitations General Appearance: Alert, WD/WN, No Apparent Distress Eye Exam: Bilateral Eye: Normal Inspection Ears: Normal External Exam, Normal Canal, Hearing Grossly Normal, Normal TMs Ear Exam: Bilateral Ear: Auricle Normal, Canal Normal, TM normal Nose: Normal Inspection, Normal Mucosa, No Blood Throat/Mouth: Normal Inspection, Normal Lips, Normal Oropharynx, Normal Voice, No Airway Compromise Head: Atraumatic, Normocephalic Neck: Normal Inspection, Supple Respiratory/Chest: No Respiratory Distress, Lungs Clear, Normal Breath Sounds, No Accessory Muscle Use Cardiovascular: Regular Rate, Rhythm, No Edema Back Exam: Normal Inspection. No: CVA Tenderness (R), CVA Tenderness (L) Extremities: Normal Inspection, Normal Range of Motion, Non-Tender, No Pedal Edema, Other (both LE's ampuated, also some of her fingers.) Neurological: Alert, Oriented, CN II-XII Intact, Normal Cognition, No Motor/ Sensory Deficits Psychiatric: Normal Affect, Normal Mood Skin Exam: Warm, Dry, Intact, Normal Color, No Rash Lymphatic: No Adenopathy Course - Vital Signs Last Recorded V/S: Last Vital Signs Temp 36.2 C 11/16/17 18:55 Pulse 89 11/16/17 19:34 Resp 16 11/16/17 18:55 BP 245/124 H 11/16/17 19:34 Pulse Ox 98 11/16/17 18:55 - Orders/Labs/Meds Orders: Active Orders 24 hr Category Date Time Status Cardiac Monitoring [RC] .As Directed Care 11/16/17 18:53 Active PRO B-TYPE NATRIUR PEPT,BNPPRO [CHEM] Stat Lab 11/16/17 19:32 Received TROPONIN I [CHEM] Stat Lab 11/16/17 19:34 Ordered Labs: Laboratory Tests 11/16/17 11/16/17 Range/Units 19:10 19:10 WBC 6.5 (4.5-11.0) K/uL RBC 3.61 (3.30-5.50) M/uL Hgb 11.2 L (12.0-15.0) g/dL Hct 35.9 L (36.0-48.0) % MCV 99 H (80-98) fL MCH 31 (27-31) pg MCHC 31 L (32-36) % Plt Count 227 (150-400) K/uL Sodium 142 (140-148) mmol/L Potassium 5.6 H (3.6-5.2) mmol/L Chloride 101 (100-108) mmol/L Carbon Dioxide 26 (21-32) mmol/L Anion Gap 20.6 H (5.0-14.0) mmol/L BUN 76 H* (7-18) mg/dL Creatinine 11.1 H* (0.6-1.0) mg/dL Est Cr Clr Drug Dosing 4.26 mL/min Estimated GFR (MDRD) 4 L (>60) Glucose 123 H (74-106) mg/dL Calcium 9.0 (8.5-10.1) mg/dL Meds: Medications Discontinued Medications Generic Name Dose Route Start Last Admin Trade Name Freq PRN Reason Stop Dose Admin Clonidine HCl 0.1 mg 11/16/17 19:30 11/16/17 19:34 Catapres PO 11/16/17 19:31 0.1 mg ONETIME ONE Administration Metoprolol Tartrate 25 mg 11/16/17 19:30 11/16/17 19:34 Lopressor PO 11/16/17 19:31 25 mg ONETIME ONE Administration Departure - Departure Time of Disposition: 20:15 Disposition: DC/Tfer to Acute Hospital 02 Condition: Fair Clinical Impression: Acute on chronic renal failure Qualifiers: Acute renal failure type: unspecified Chronic kidney disease stage: stage 5, not on chronic dialysis Qualified Code(s): N17.9 - Acute kidney failure, unspecified HTN (hypertension) Qualifiers: Hypertension type: renovascular hypertension Qualified Code(s): I15.0 - Renovascular hypertension - Discharge Information Referrals: PCP,None [Primary Care Provider] - Forms: ED Department Discharge - My Orders Last 24 Hours: My Active Orders 11/16/17 18:53 Cardiac Monitoring [RC] .As Directed 11/16/17 19:32 PRO B-TYPE NATRIUR PEPT,BNPPRO [CHEM] Stat 11/16/17 19:34 TROPONIN I [CHEM] Stat - Assessment/Plan Last 24 Hours: My Active Orders 11/16/17 18:53 Cardiac Monitoring [RC] .As Directed 11/16/17 19:32 PRO B-TYPE NATRIUR PEPT,BNPPRO [CHEM] Stat 11/16/17 19:34 TROPONIN I [CHEM] Stat
[2017-11-16] MEDS ORDERED: cloNIDine 0.1 MG Tab PO ONE (19:30)
[2017-11-16] MEDS ORDERED: Metoprolol Tartrate 25 MG Tab PO ONE (19:30)
[2017-11-16 20:04] VITALS: BP 243/125
--- NOTE | 2017-11-17 08:46 | CR ---
Chest 1V Frontal HISTORY: sob COMPARISON: 10/10/2017, 03/07/2017 FINDINGS: Left-sided dialysis catheter is stable. Heart size is within normal limits. Again seen is m ild diffuse interstitial prominence. This could be mild chronic fibrotic changes or early interstitia l edema. Appearance is improved compared to the study of 10/10/2017. No focal consolidation is seen. Re mainder of the exam is unchanged. IMPRESSION: Minimal interstitial prominence diffusely. Represent mild fibrotic changes versus early i nterstitial edema. This is less prominent compared with 10/10/2017. Remainder of the chest is stable.
== END 2017-11-16 21:11 ==
LOC: JP.ED 18:49
DX: I15.0 Renovascular hypertension (principal); N18.5 Chronic kidney disease, stage 5; N17.9 Acute kidney failure, unspecified; E11.22 Type 2 diabetes mellitus with diabetic chronic kidney disease; E78.00 Pure hypercholesterolemia, unspecified; K21.9 Gastro-esophageal reflux disease without esophagitis; Z88.8 Allergy status to other drugs, medicaments and biological substances; Z79.82 Long term (current) use of aspirin; Z79.899 Other long term (current) drug therapy
CPT/HCPCS: 36415; 71045; 80048; 83880; 84484; 85027; 99285; A9270

== ENCOUNTER 2020-03-10 23:05 | Emergency (ER) | payer MEDICAID ==
--- NOTE | 2020-03-10 23:13 | EDM.PDOC ---
ED HPI GENERAL MEDICAL PROBLEM - General Stated Complaint: MEDICAL [facility]IA [facility] Time Seen by Provider: 03/10/20 23:45 Source of Information: Reports: Patient History Limitations: Reports: No Limitations - History of Present Illness Onset: Today Duration: Getting Worse Quality: Reports: Same as Previous Episode Associated Symptoms: Reports: Other (Patient has no idea what her blood glucoses. Has not tested today.) Lower Leg Pain Score (Numeric/FACES): 5 - Related Data Allergies Allergy/AdvReac Type Severity Reaction Status Date / Time ibuprofen Allergy Cannot Verified 03/10/20 23:45 Remember NSAIDS (Non-Steroidal Allergy Cannot Verified 03/10/20 23:45 Anti-Inflamma Remember Home Meds: Home Meds Gabapentin 300 mg PO ASDIRECTED 06/06/13 [History] amLODIPine Besylate [Amlodipine Besylate] 10 mg PO DAILY 06/06/13 [History] atorvaSTATin [Lipitor] 40 mg PO BEDTIME 06/06/13 [History] Escitalopram [Lexapro] 10 mg PO DAILY 03/27/14 [History] Clopidogrel [Plavix] 75 mg PO DAILY 04/27/14 [History] Acetaminophen [Pain Relief] 325 mg PO QID PRN 03/10/20 [History] Albuterol Sulfate [Albuterol Sulfate Hfa] 2 puff IH Q4H PRN 03/10/20 [History] Albuterol/Ipratropium [Combivent Respimat] 1 dose IH QID 03/10/20 [History] Aspirin [Low Dose Aspirin EC] 81 mg PO DAILY 03/10/20 [History] Camphor/Menthol [Sarna Lotion] 1 dose TP ASDIRECTED PRN 03/10/20 [History] Cholecalciferol (Vitamin D3) [Vitamin D3] 1,000 unit PO DAILY 03/10/20 [History] Cinacalcet [Sensipar] 30 mg PO DAILY 03/10/20 [History] Docusate Sodium/Sennosides [Senokot-S] 2 each PO BID PRN 03/10/20 [History] Famotidine [Pepcid] 20 mg PO DAILY 03/10/20 [History] Folic Acid/Vitamin B Comp W-C [Nephrocaps Softgel] 1 tab PO DAILY 03/10/20 [ History] Insulin Aspart [NovoLOG] 0 unit SQ WITHMEALSANDBED PRN 03/10/20 [History] Insulin Detemir [Levemir Flextouch] 5 - 10 unit SQ BEDTIME 03/10/20 [History] QUEtiapine [SEROquel] 12.5 mg PO BID 03/10/20 [History] Sucroferric Oxyhydroxide [Velphoro] 4 tab PO TID 03/10/20 [History] hydrALAZINE [Apresoline] 25 mg PO TID 03/10/20 [History] hydrOXYzine HCL [Hydroxyzine HCl] 25 mg PO TID PRN 03/10/20 [History] polyethylene glycoL 3350 [MiraLAX] 17 gm PO DAILY PRN 03/10/20 [History] Past Medical History - Past Health History Medical/Surgical History: Denies Medical/Surgical History HEENT History: Reports: Cataract, Impaired Vision Cardiovascular History: Reports: CAD, Heart Murmur, High Cholesterol, Hypertension Respiratory History: Reports: Pneumonia, Recurrent, Other (See Below) Other Respiratory History: reactive airway Gastrointestinal History: Reports: Cholelithiasis, GERD, GI Bleed, Other (See Below) Other Gastrointestinal History: bleeding ulcer Genitourinary History: Reports: Acute Renal Failure, Dialysis Other Genitourinary History: Dialysis 3 times a week since 2013 [employer] History: Reports: , Spontaneous Psychiatric History: Reports: Addiction, Anxiety, Depression, Panic Attack Endocrine/Metabolic History: Reports: Diabetes, Type II Hematologic History: Reports: Blood Transfusion(s) - Infectious Disease History Infectious Disease History: Reports: Other (See Below) Other Infectious Disease History: unknown - Past Surgical History GI Surgical History: Reports: Cholecystectomy, Colonoscopy, EGD Musculoskeletal Surgical History: Reports: Amputation Other Musculoskeletal Surgeries/Procedures:: bilateral above the knee - History Comment History Comment: The patient states that her previous diabetes and kidney care has occurred through show in [place] Social & Family History - Caffeine Use Caffeine Use: Reports: Coffee, Soda ED ROS GENERAL - Review of Systems Review Of Systems: See Below Constitutional: Reports: Malaise, Weakness, Fatigue. Denies: Fever Respiratory: Denies: Shortness of Breath, Wheezing Cardiovascular: Reports: Blood Pressure Problem GI/Abdominal: Denies: Abdominal Pain, Nausea, Vomiting : Denies: Dysuria Neurological: Denies: Confusion, Headache, Change in Speech ED EXAM, NEURO - Physical Exam Exam: See Below Exam Limited By: No Limitations General Appearance: Alert Ears: Normal External Exam Nose: Normal Inspection Throat/Mouth: Other (Dry mucous membranes) Respiratory/Chest: No Respiratory Distress, Lungs Clear Cardiovascular: Normal Peripheral Pulses, Regular Rate, Rhythm GI/Abdominal: Soft, Non-Tender. No: Guarding, Rebound Neurological: Alert, Oriented x 3 Extremities: Other (A lateral below-knee amputations) Psychiatric: Depressed Mood EKG INTERPRETATION EKG Date: 03/11/20 Time: 00:45 Rhythm: A-Fib Rate (Beats/Min): 36 (Bradycardia consistent with hyperkalemia) P-Wave: Absent ST-T: Other (No markedly peaked T waves as I would expect with hyperkalemia) Course - Vital Signs Text/Narrative:: Initial differential diagnosis includes dehydration, electrolyte abnormality, hyperglycemia, diabetic ketoacidosis, urinary tract infection, sepsis. She'll laboratory studies show a marked hyperkalemia and mild hypokalemia. We'll treat this with 1 L normal saline IV fluid bolus and 1 g calcium chloride IV.. At 00 55 hours on 03/11/2020 I discussed the patient with Dr. Lord at [facility]. Administered 0.1 mg of clonidine orally for her hypertension Last Recorded V/S: Last Vital Signs Temp 36.4 C 03/10/20 23:23 Pulse 51 L 03/10/20 23:23 Resp 13 03/10/20 23:23 BP 261/97 H 03/10/20 23:23 Pulse Ox 98 03/10/20 23:23 - Orders/Labs/Meds Orders: Active Orders 24 hr Category Date Time Status EKG Documentation Completion [RC] ASDIRECTED Care 03/10/20 23:35 Active Chest 1V Frontal [CR] Stat Exams 03/11/20 00:20 Taken UA W/MICROSCOPIC [URIN] Urgent Lab 03/10/20 23:34 Ordered Sodium Chloride 0.9% [Normal Saline] 1,000 ml Med 03/11/20 00:22 Active IV .BOLUS EKG 12 Lead [EK] Urgent Ther 03/10/20 23:34 Ordered Medication Orders Sodium Chloride (Normal Saline) 1,000 mls @ 999 mls/hr IV .BOLUS ONE Stop: 03/11/20 01:22 Last Admin: 03/11/20 00:40 Dose: 999 mls/hr Labs: Laboratory Tests 03/10/20 03/10/20 03/10/20 Range/Units 23:45 23:45 23:45 WBC 7.8 (4.5-11.0) K/uL RBC 4.73 (3.30-5.50) M/uL Hgb 13.8 D (12.0-15.0) g/dL Hct 45.8 (36.0-48.0) % MCV 97 (80-98) fL MCH 29 (27-31) pg MCHC 30 L (32-36) % Plt Count 240 (150-400) K/uL PT 10.5 (9.5-12.0) sec INR 0.97 (0.80-1.20) ABG Hemoglobin (12.0-16.0) g/dL ABG Oxyhemoglobin % ABG Carboxyhemoglobin (0.0-1.6) % ABG Methemoglobin % VBG pH (7.350-7.450) VBG pCO2 mm/Hg VBG pO2 mm/Hg VBG HCO3 mmol/L VBG Total CO2 mmol/L VBG O2 Saturation VBG O2 Content %vol VBG Base Excess mm/L O2 Delivery Device Sodium (140-148) mmol/L Potassium (3.6-5.2) mmol/L Chloride (100-108) mmol/L Carbon Dioxide (21-32) mmol/L Anion Gap (5.0-14.0) mmol/L BUN (7-18) mg/dL Creatinine (0.6-1.0) mg/dL Est Cr Clr Drug Dosing Estimated GFR (MDRD) (>60) Glucose (74-106) mg/dL Lactic Acid (0.4-2.0) mmol/L Calcium (8.5-10.1) mg/dL Magnesium (1.8-2.4) mg/dL Total Bilirubin (0.2-1.0) mg/dL AST (15-37) U/L ALT (12-78) U/L Alkaline Phosphatase (46-116) U/L Troponin I < 0.017 (0.000-0.056) ng/mL Total Protein (6.4-8.2) g/dL Albumin (3.4-5.0) g/dL Globulin (2.3-3.5) g/dL Albumin/Globulin Ratio (1.2-2.2) Lipase 141 (73-393) U/L 03/10/20 03/10/20 03/10/20 Range/Units 23:45 23:45 23:45 WBC (4.5-11.0) K/uL RBC (3.30-5.50) M/uL Hgb (12.0-15.0) g/dL Hct (36.0-48.0) % MCV (80-98) fL MCH (27-31) pg MCHC (32-36) % Plt Count (150-400) K/uL PT (9.5-12.0) sec INR (0.80-1.20) ABG Hemoglobin 14.4 (12.0-16.0) g/dL ABG Oxyhemoglobin 72.4 % ABG Carboxyhemoglobin 2.3 H (0.0-1.6) % ABG Methemoglobin 0.9 % VBG pH 7.415 (7.350-7.450) VBG pCO2 48.4 mm/Hg VBG pO2 44.8 mm/Hg VBG HCO3 30.5 mmol/L VBG Total CO2 26.8 mmol/L VBG O2 Saturation 74.8 VBG O2 Content 14.7 %vol VBG Base Excess 5.3 mm/L O2 Delivery Device Room air Sodium 134 L (140-148) mmol/L Potassium 8.7 H* (3.6-5.2) mmol/L Chloride 98 L (100-108) mmol/L Carbon Dioxide 30 (21-32) mmol/L Anion Gap 14.7 H (5.0-14.0) mmol/L BUN 57 H (7-18) mg/dL Creatinine 7.7 H* (0.6-1.0) mg/dL Est Cr Clr Drug Dosing TNP Estimated GFR (MDRD) 5 L (>60) Glucose 82 (74-106) mg/dL Lactic Acid 0.6 (0.4-2.0) mmol/L Calcium 7.8 L (8.5-10.1) mg/dL Magnesium (1.8-2.4) mg/dL Total Bilirubin 0.5 (0.2-1.0) mg/dL AST 33 (15-37) U/L ALT 26 (12-78) U/L Alkaline Phosphatase 99 (46-116) U/L Troponin I (0.000-0.056) ng/mL Total Protein 8.0 (6.4-8.2) g/dL Albumin 3.2 L (3.4-5.0) g/dL Globulin 4.8 H (2.3-3.5) g/dL Albumin/Globulin Ratio 0.7 L (1.2-2.2) Lipase (73-393) U/L 03/10/20 Range/Units 23:45 WBC (4.5-11.0) K/uL RBC (3.30-5.50) M/uL Hgb (12.0-15.0) g/dL Hct (36.0-48.0) % MCV (80-98) fL MCH (27-31) pg MCHC (32-36) % Plt Count (150-400) K/uL PT (9.5-12.0) sec INR (0.80-1.20) ABG Hemoglobin (12.0-16.0) g/dL ABG Oxyhemoglobin % ABG Carboxyhemoglobin (0.0-1.6) % ABG Methemoglobin % VBG pH (7.350-7.450) VBG pCO2 mm/Hg VBG pO2 mm/Hg VBG HCO3 mmol/L VBG Total CO2 mmol/L VBG O2 Saturation VBG O2 Content %vol VBG Base Excess mm/L O2 Delivery Device Sodium (140-148) mmol/L Potassium (3.6-5.2) mmol/L Chloride (100-108) mmol/L Carbon Dioxide (21-32) mmol/L Anion Gap (5.0-14.0) mmol/L BUN (7-18) mg/dL Creatinine (0.6-1.0) mg/dL Est Cr Clr Drug Dosing Estimated GFR (MDRD) (>60) Glucose (74-106) mg/dL Lactic Acid (0.4-2.0) mmol/L Calcium (8.5-10.1) mg/dL Magnesium 2.4 (1.8-2.4) mg/dL Total Bilirubin (0.2-1.0) mg/dL AST (15-37) U/L ALT (12-78) U/L Alkaline Phosphatase (46-116) U/L Troponin I (0.000-0.056) ng/mL Total Protein (6.4-8.2) g/dL Albumin (3.4-5.0) g/dL Globulin (2.3-3.5) g/dL Albumin/Globulin Ratio (1.2-2.2) Lipase (73-393) U/L Meds: Medications Generic Name Dose Route Start Last Admin Trade Name Freq PRN Reason Stop Dose Admin Sodium Chloride 1,000 mls @ 999 mls/hr 03/11/20 00:22 03/11/20 00:40 Normal Saline IV 03/11/20 01:22 999 mls/hr .BOLUS ONE Administration Discontinued Medications Generic Name Dose Route Start Last Admin Trade Name Freq PRN Reason Stop Dose Admin Calcium Chloride 1 gm 03/11/20 00:24 03/11/20 00:41 Calcium Chloride 10% IVPUSH 03/11/20 00:25 1 gm ONETIME ONE Administration Clonidine HCl 0.1 mg 03/11/20 01:10 Catapres PO 03/11/20 01:11 ONETIME ONE Departure - Departure Time of Disposition: 01:12 Disposition: DC/Tfer to Acute Hospital 02 Clinical Impression: Hyperkalemia Chronic renal failure Qualifiers: Chronic kidney disease stage: unspecified stage Qualified Code(s): N18.9 - Chronic kidney disease, unspecified HTN (hypertension) Qualifiers: Hypertension type: renovascular hypertension Qualified Code(s): 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 - Renovascular hypertension - Discharge Information Referrals: PCP,None [Primary Care Provider] - Sepsis Event Note - Focused Exam Vital Signs: Vital Signs Temp Pulse Resp BP Pulse Ox 03/10/20 23:23 36.4 C 51 L 13 261/97 H 98 Date Exam was Performed: 03/11/20 Time Exam was Performed: 01:11 - My Orders Last 24 Hours: My Active Orders 03/10/20 23:34 UA W/MICROSCOPIC [URIN] Urgent EKG 12 Lead [EK] Urgent 03/10/20 23:35 EKG Documentation Completion [RC] ASDIRECTED 03/11/20 00:20 Chest 1V Frontal [CR] Stat 03/11/20 00:22 Sodium Chloride 0.9% [Normal Saline] 1,000 ml IV .BOLUS - Assessment/Plan Last 24 Hours: My Active Orders 03/10/20 23:34 UA W/MICROSCOPIC [URIN] Urgent EKG 12 Lead [EK] Urgent 03/10/20 23:35 EKG Documentation Completion [RC] ASDIRECTED 03/11/20 00:20 Chest 1V Frontal [CR] Stat 03/11/20 00:22 Sodium Chloride 0.9% [Normal Saline] 1,000 ml IV .BOLUS
[2020-03-11] MEDS: Sodium Chloride 0.9% 1,000 ML IV ONE (00:40)
[2020-03-11] MEDS: Calcium Chloride 10% 1 GM/10 ML Syringe IVPUSH ONE (00:41)
[2020-03-11 01:20] VITALS: BP 213/119
[2020-03-11] MEDS: cloNIDine 0.1 MG Tab PO ONE (01:20)
[2020-03-11 01:32] VITALS: PULSE 46
--- NOTE | 2020-03-11 10:09 | CR ---
CHEST: Portable 03/11/2020 at 12:36 AM CLINICAL HISTORY:Weakness COMPARISON:11/16/2017 FINDINGS: The heart is enlarged. The patient has a double lumen catheter from the left jugular approach. Tip is in the right atrium. Pulmonary vascularity is mildly cephalized. This is similar to prior study. No infiltrates are seen. Impression: Cardiomegaly Mild vascular cephalization may be chronic or due to some pulmonary venous hypertension Left jugular catheter tip is in the right atrium
== END 2020-03-11 01:48 ==
LOC: JP.ED 23:05
DX: I15.0 Renovascular hypertension (principal); N18.9 Chronic kidney disease, unspecified; E87.5 Hyperkalemia; E11.22 Type 2 diabetes mellitus with diabetic chronic kidney disease; E78.00 Pure hypercholesterolemia, unspecified; I25.10 Atherosclerotic heart disease of native coronary artery without angina pectoris; K21.9 Gastro-esophageal reflux disease without esophagitis; F41.9 Anxiety disorder, unspecified; F32.9 Major depressive disorder, single episode, unspecified; Z88.6 Allergy status to analgesic agent; Z88.8 Allergy status to other drugs, medicaments and biological substances; Z79.02 Long term (current) use of antithrombotics/antiplatelets; Z79.899 Other long term (current) drug therapy; Z79.82 Long term (current) use of aspirin; Z79.4 Long term (current) use of insulin
CPT/HCPCS: 36415; 71045; 80053; 82803; 83605; 83690; 83735; 84484; 85027; 85610; 93005; 96374; 99285; A9270; J7030

== ENCOUNTER 2020-05-29 19:15 | Emergency (ER) | payer MEDICAID ==
[2020-05-29] MEDS ORDERED: Cyclobenzaprine 10 MG Tab PO ONE (19:53)
[2020-05-29] MEDS ORDERED: Acetaminophen/HYDROcodone 325-5 MG Tab PO ONE (19:53)
[2020-05-29 19:58] VITALS: BP 150/71; PULSE 89
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
== END 2020-05-29 20:11 | disposition home or self-care (01) ==
LOC: JP.ED 19:15
DX: S16.1XXA Strain of muscle, fascia and tendon at neck level, initial encounter (principal); I25.10 Atherosclerotic heart disease of native coronary artery without angina pectoris; E78.00 Pure hypercholesterolemia, unspecified; I10 Essential (primary) hypertension; E11.9 Type 2 diabetes mellitus without complications; F41.9 Anxiety disorder, unspecified; F32.9 Major depressive disorder, single episode, unspecified; K21.9 Gastro-esophageal reflux disease without esophagitis; Z79.02 Long term (current) use of antithrombotics/antiplatelets; Z79.899 Other long term (current) drug therapy; Z88.6 Allergy status to analgesic agent; Z88.8 Allergy status to other drugs, medicaments and biological substances; W22.8XXA Striking against or struck by other objects, initial encounter
CPT/HCPCS: 99283; A9270

== ENCOUNTER 2020-10-21 20:45 | Emergency (ER) | payer MEDICAID ==
[2020-10-21 21:42] VITALS: BP 255/105; PULSE 90
--- NOTE | 2020-10-21 22:02 | EDM.PDOC ---
ED HPI GENERAL MEDICAL PROBLEM - General Chief Complaint: Respiratory Problem Stated Complaint: SOB Time Seen by Provider: 10/21/20 21:25 Source of Information: Reports: Patient History Limitations: Reports: No Limitations - History of Present Illness INITIAL COMMENTS - FREE TEXT/NARRATIVE: 55-year-old female on chronic dialysis, had dialysis today. She has been short of breath for the past 1 to 2 weeks, seems like it is worse when she lies down and her mask is bothering her. She was in [facility] so she thought she would come in and get it checked. No fevers or chills, no cough, no pain or headache. Onset: Unknown/Unsure Worsens with: Reports: Other (Seems to be worse when laying down) Headache Pain Score (Numeric/FACES): 10 Right Flank Pain Score (Numeric/FACES): 8 - Related Data Allergies Allergy/AdvReac Type Severity Reaction Status Date / Time ibuprofen Allergy Cannot Verified 05/29/20 19:44 Remember NSAIDS (Non-Steroidal Allergy Cannot Verified 05/29/20 19:44 Anti-Inflamma Remember Home Meds: Home Meds amLODIPine Besylate [Amlodipine Besylate] 10 mg PO DAILY 06/06/13 [History] atorvaSTATin [Lipitor] 40 mg PO BEDTIME 06/06/13 [History] Escitalopram [Lexapro] 10 mg PO DAILY 03/27/14 [History] Clopidogrel [Plavix] 75 mg PO DAILY 04/27/14 [History] Acetaminophen [Pain Relief] 325 mg PO QID PRN 03/10/20 [History] Cinacalcet [Sensipar] 30 mg PO DAILY 03/10/20 [History] Docusate Sodium/Sennosides [Senokot-S] 2 each PO BID PRN 03/10/20 [History] Famotidine [Pepcid] 20 mg PO DAILY 03/10/20 [History] Folic Acid/Vitamin B Comp W-C [Nephrocaps Softgel] 1 tab PO DAILY 03/10/20 [History] Insulin Aspart [NovoLOG] 0 unit SQ WITHMEALSANDBED PRN 03/10/20 [History] Insulin Detemir [Levemir Flextouch] 5 - 10 unit SQ BEDTIME 03/10/20 [History] QUEtiapine [SEROquel] 12.5 mg PO BID 03/10/20 [History] Sucroferric Oxyhydroxide [Velphoro] 4 tab PO TID 03/10/20 [History] hydrALAZINE [Apresoline] 25 mg PO TID 03/10/20 [History] hydrOXYzine HCL [Hydroxyzine HCl] 25 mg PO TID PRN 03/10/20 [History] Hydrocodone/Acetaminophen [Vicodin Hp 10-300 mg Tablet] 2 each PO Q8HR 10/21/20 [History] Past Medical History - Past Health History Medical/Surgical History: Denies Medical/Surgical History HEENT History: Reports: Cataract, Impaired Vision Cardiovascular History: Reports: CAD, Heart Murmur, High Cholesterol, Hypertension Respiratory History: Reports: Asthma, Pneumonia, Recurrent, Other (See Below) Other Respiratory History: reactive airway Gastrointestinal History: Reports: Cholelithiasis, GERD, GI Bleed, Other (See Below) Other Gastrointestinal History: bleeding ulcer Genitourinary History: Reports: Acute Renal Failure, Dialysis Other Genitourinary History: Dialysis 3 times a week since 2013 [facility] History: Reports: , Spontaneous Musculoskeletal History: Reports: Amputation Psychiatric History: Reports: Addiction, Anxiety, Depression, Panic Attack Endocrine/Metabolic History: Reports: Diabetes, Type II Hematologic History: Reports: Blood Transfusion(s) Immunologic History: Reports: Other (See Below) Other Immunologic History: gangrene bilateral legs - Infectious Disease History Infectious Disease History: Reports: Other (See Below) Other Infectious Disease History: unknown - Past Surgical History GI Surgical History: Reports: Cholecystectomy, Colonoscopy, EGD Musculoskeletal Surgical History: Reports: Amputation Other Musculoskeletal Surgeries/Procedures:: bilateral above the knee secondary to gangrene - History Comment History Comment: The patient states that her previous diabetes and kidney care has occurred through [facility] in [place] Social & Family History - Tobacco Use Tobacco Use Status *Q: Never Tobacco User - Caffeine Use Caffeine Use: Reports: Coffee - Recreational Drug Use Recreational Drug Use: No ED ROS GENERAL - Review of Systems Review Of Systems: See Below Constitutional: Denies: Fever, Chills HEENT: Denies: Throat Pain Respiratory: Reports: Shortness of Breath. Denies: Hemoptysis Cardiovascular: Denies: Chest Pain, Palpitations GI/Abdominal: Denies: Nausea, Vomiting Neurological: Denies: Headache ED EXAM, GENERAL - Physical Exam Exam: See Below Exam Limited By: No Limitations General Appearance: Alert, No Apparent Distress Head: Atraumatic Respiratory/Chest: No Respiratory Distress, Other (A few basilar rales are present but overall the lungs are very clear and there is no increased respiratory effort or rate) Cardiovascular: Regular Rate, Rhythm Neurological: Alert, Oriented Course - Vital Signs Last Recorded V/S: Last Vital Signs Temp 96.8 F L 10/21/20 21:40 Pulse 90 10/21/20 21:40 Resp 24 H 10/21/20 21:40 BP 255/105 H 10/21/20 21:40 Pulse Ox 98 10/21/20 21:40 - Re-Assessments/Exams Free Text/Narrative Re-Assessment/Exam: 10/21/20 22:00 O2 saturations are 99%, respiratory rate is normal and lungs are fairly clear. I told the patient we will do a chest x-ray but by the time radiology came to her room to get her she had decided to leave AMA and signed out. Departure - Departure Time of Disposition: 21:55 Disposition: Against Medical Advice 07 Clinical Impression: Shortness of breath - Discharge Information Instructions: Shortness of Breath, Adult, [id number] Referrals: Yu Eaton MD [Primary Care Provider] - Forms: ED Department Discharge Care Plan Goals: Instructions were not able to be given to the patient as she left AMA. Sepsis Event Note (ED) - Evaluation Sepsis Screening Result: No Definite Risk - Focused Exam Vital Signs: Vital Signs Temp Pulse Resp BP Pulse Ox 10/21/20 21:40 96.8 F L 90 24 H 255/105 H 98
== END 2020-10-21 21:55 | disposition left against medical advice (07) ==
LOC: JP.ED 20:45
DX: R06.02 Shortness of breath (principal); I10 Essential (primary) hypertension; K21.9 Gastro-esophageal reflux disease without esophagitis; I25.10 Atherosclerotic heart disease of native coronary artery without angina pectoris; J45.909 Unspecified asthma, uncomplicated; Z88.6 Allergy status to analgesic agent; Z88.8 Allergy status to other drugs, medicaments and biological substances; Z99.2 Dependence on renal dialysis; Z79.4 Long term (current) use of insulin; Z79.02 Long term (current) use of antithrombotics/antiplatelets; Z79.899 Other long term (current) drug therapy
CPT/HCPCS: 99282; 99284

== ENCOUNTER 2020-10-22 12:48 | Emergency (ER) | payer MEDICAID ==
--- NOTE | 2020-10-22 12:58 | EDM.PDOC ---
ED HPI GENERAL MEDICAL PROBLEM - General Chief Complaint: General Stated Complaint: [facility] Time Seen by Provider: 10/22/20 12:58 Source of Information: Reports: Patient, EMS History Limitations: Reports: No Limitations - History of Present Illness INITIAL COMMENTS - FREE TEXT/NARRATIVE: pt was seen yesterday and a chest xray was ordered but she did not wait for the xray to be done she left AMA. She did have a markedly elevated bp at that time and continues to be the case today. She has not been taking her meds on a regular bAsis. Onset: Gradual Duration: Day(s): Location: Reports: Chest, Generalized, Other (pt is complaining of sob. ) Associated Symptoms: Reports: Shortness of Breath, Other (not taking meds on a regular basis. ) - Related Data Allergies Allergy/AdvReac Type Severity Reaction Status Date / Time ibuprofen Allergy Cannot Verified 10/22/20 12:50 Remember NSAIDS (Non-Steroidal Allergy Cannot Verified 10/22/20 12:50 Anti-Inflamma Remember Home Meds: Home Meds amLODIPine Besylate [Amlodipine Besylate] 10 mg PO DAILY 06/06/13 [History] atorvaSTATin [Lipitor] 40 mg PO BEDTIME 06/06/13 [History] Escitalopram [Lexapro] 10 mg PO DAILY 03/27/14 [History] Clopidogrel [Plavix] 75 mg PO DAILY 04/27/14 [History] Acetaminophen [Pain Relief] 325 mg PO QID PRN 03/10/20 [History] Cinacalcet [Sensipar] 30 mg PO DAILY 03/10/20 [History] Docusate Sodium/Sennosides [Senokot-S] 2 each PO BID PRN 03/10/20 [History] Famotidine [Pepcid] 20 mg PO DAILY 03/10/20 [History] Folic Acid/Vitamin B Comp W-C [Nephrocaps Softgel] 1 tab PO DAILY 03/10/20 [History] Insulin Aspart [NovoLOG] 0 unit SQ WITHMEALSANDBED PRN 03/10/20 [History] Insulin Detemir [Levemir Flextouch] 5 - 10 unit SQ BEDTIME 03/10/20 [History] QUEtiapine [SEROquel] 12.5 mg PO BID 03/10/20 [History] Sucroferric Oxyhydroxide [Velphoro] 4 tab PO TID 03/10/20 [History] hydrALAZINE [Apresoline] 100 mg PO TID 03/10/20 [History] hydrOXYzine HCL [Hydroxyzine HCl] 25 mg PO TID PRN 03/10/20 [History] Hydrocodone/Acetaminophen [Vicodin Hp 10-300 mg Tablet] 2 each PO Q8HR 10/21/20 [History] Escitalopram Oxalate [Lexapro] 10 mg PO DAILY 10/22/20 [History] Isosorbide Mononitrate [Imdur] 60 mg PO DAILY 10/22/20 [History] Losartan [Cozaar] 100 mg PO DAILY 10/22/20 [History] levETIRAcetam [Keppra] 500 mg PO DAILY 10/22/20 [History] minoxidiL [Minoxidil] 2.5 mg PO DAILY 10/22/20 [History] Past Medical History - Past Health History Medical/Surgical History: Denies Medical/Surgical History HEENT History: Reports: Cataract, Impaired Vision Cardiovascular History: Reports: CAD, Heart Murmur, High Cholesterol, Hypertension Respiratory History: Reports: Asthma, Pneumonia, Recurrent, Other (See Below) Other Respiratory History: reactive airway Gastrointestinal History: Reports: Cholelithiasis, GERD, GI Bleed, Other (See Below) Other Gastrointestinal History: bleeding ulcer Genitourinary History: Reports: Acute Renal Failure, Dialysis Other Genitourinary History: Dialysis 3 times a week since 2013 [employer] History: Reports: , Spontaneous Musculoskeletal History: Reports: Amputation Psychiatric History: Reports: Addiction, Anxiety, Depression, Panic Attack Endocrine/Metabolic History: Reports: Diabetes, Type II Hematologic History: Reports: Blood Transfusion(s) Immunologic History: Reports: Other (See Below) Other Immunologic History: gangrene bilateral legs - Infectious Disease History Infectious Disease History: Reports: Other (See Below) Other Infectious Disease History: unknown - Past Surgical History GI Surgical History: Reports: Cholecystectomy, Colonoscopy, EGD Musculoskeletal Surgical History: Reports: Amputation Other Musculoskeletal Surgeries/Procedures:: bilateral above the knee secondary to gangrene - History Comment History Comment: The patient states that her previous diabetes and kidney care has occurred through show in [place] Social & Family History - Caffeine Use Caffeine Use: Reports: Coffee ED ROS GENERAL - Review of Systems Review Of Systems: See Below Constitutional: Reports: No Symptoms HEENT: Reports: No Symptoms Respiratory: Reports: Shortness of Breath, Cough Cardiovascular: Reports: No Symptoms Endocrine: Reports: No Symptoms GI/Abdominal: Reports: Decreased Appetite, Other (poor oral intake. ) : Reports: Other (pt is a dialysis pt. ) Musculoskeletal: Reports: No Symptoms Skin: Reports: No Symptoms Neurological: Reports: Other (very sleepy) Psychiatric: Reports: Anxiety ED EXAM, GENERAL - Physical Exam Exam: See Below Free Text/Narrative:: pt arrived very hypertensive with a history of only taking her hydrazine this am. She has not been eating, she has not been compliant with her meds, She is sleeping alot. She needs someone to set upher meds. 3 days ago she began to be quite sob. With activity she does desat into the 80s. Exam Limited By: No Limitations General Appearance: Alert, Anxious, Mild Distress, Other (pt falls to sleep easily when she is being talked to. ) Ears: Normal TMs Nose: Normal Inspection Throat/Mouth: Normal Inspection Head: Atraumatic Neck: Normal Inspection Respiratory/Chest: Other ( rales at the lung bases. ) Cardiovascular: Regular Rate, Rhythm GI/Abdominal: Soft, Non-Tender (Female) Exam: Deferred Rectal (Female) Exam: Deferred Back Exam: Normal Inspection Extremities: Other (pt is a bilateral amputee) Neurological: Alert, Inattentive, Other ( falls asleep easilly) Psychiatric: Flat Affect Course - Vital Signs Last Recorded V/S: Last Vital Signs Temp 37.0 C 10/22/20 12:59 Pulse 75 10/22/20 16:03 Resp 17 10/22/20 13:18 BP 158/67 H 10/22/20 16:03 Pulse Ox 93 L 10/22/20 13:18 - Orders/Labs/Meds Orders: Active Orders 24 hr Category Date Time Status EKG Documentation Completion [RC] ASDIRECTED Care 10/22/20 15:24 Active TROPONIN I [CHEM] Stat Lab 10/22/20 15:47 Received EKG 12 Lead [EK] Routine Ther 10/22/20 15:24 Ordered Labs: Laboratory Tests 10/22/20 10/22/20 10/22/20 Range/Units 13:01 13:01 13:55 WBC 5.9 (4.5-11.0) K/uL RBC 3.85 (3.30-5.50) M/uL Hgb 11.6 L D (12.0-15.0) g/dL Hct 37.3 (36.0-48.0) % MCV 97 (80-98) fL MCH 30 (27-31) pg MCHC 31 L (32-36) % Plt Count 271 (150-400) K/uL Neut % (Auto) 77 H (36-66) % Lymph % (Auto) 13 L (24-44) % [place] % (Auto) 7 H (2-6) % Eos % (Auto) 3 (2-4) % Baso % (Auto) 1 (0-1) % Sodium 138 L (140-148) mmol/L Potassium 4.0 (3.6-5.2) mmol/L Chloride 96 L (100-108) mmol/L Carbon Dioxide 35 H (21-32) mmol/L Anion Gap 11.0 (5.0-14.0) mmol/L BUN 23 H D (7-18) mg/dL Creatinine 5.1 H* (0.6-1.0) mg/dL Est Cr Clr Drug Dosing TNP Estimated GFR (MDRD) 9 L (>60) Glucose 76 (74-106) mg/dL Calcium 9.8 D (8.5-10.1) mg/dL Magnesium 2.2 (1.8-2.4) mg/dL Total Bilirubin 0.9 D (0.2-1.0) mg/dL AST 58 H D (15-37) U/L ALT 68 D (12-78) U/L Alkaline Phosphatase 142 H (46-116) U/L NT-Pro-B Natriuret Pep (5-125) pg/mL Total Protein 7.6 (6.4-8.2) g/dL Albumin 3.2 L (3.4-5.0) g/dL Globulin 4.4 H (2.3-3.5) g/dL Albumin/Globulin Ratio 0.7 L (1.2-2.2) Urine Color (YELLOW) Urine Appearance (CLEAR) Urine pH (5.0-8.0) Ur Specific Angie (1.008-1.030) Urine Protein (NEGATIVE) mg/dL Urine Glucose (UA) (NEGATIVE) mg/dL Urine Ketones (NEGATIVE) mg/dL Urine Occult Blood (NEGATIVE) Urine Nitrite (NEGATIVE) Urine Bilirubin (NEGATIVE) Urine Urobilinogen (0.2-1.0) EU/dL Ur Leukocyte Esterase (NEGATIVE) Urine RBC (0-5) Urine WBC (0-5) Ur Epithelial Cells Amorphous Sediment Urine Bacteria Urine Mucus Urine Other Urinalysis Comment Urine Opiates Screen (NEGATIVE) Ur Oxycodone Screen (NEGATIVE) Urine Methadone Screen (NEGATIVE) Ur Propoxyphene Screen (NEGATIVE) Ur Barbiturates Screen (NEGATIVE) Ur Tricyclics Screen (NEGATIVE) Ur Phencyclidine Scrn (NEGATIVE) Ur Amphetamine Screen (NEGATIVE) U Methamphetamines Scrn (NEGATIVE) Urine MDMA Screen (NEGATIVE) U Benzodiazepines Scrn (NEGATIVE) U Cocaine Metab Screen (NEGATIVE) U Marijuana (THC) Screen (NEGATIVE) SARS CoV-2 RNA Rapid LATRELL 10/22/20 10/22/20 10/22/20 Range/Units 14:00 14:11 14:49 WBC (4.5-11.0) K/uL RBC (3.30-5.50) M/uL Hgb (12.0-15.0) g/dL Hct (36.0-48.0) % MCV (80-98) fL MCH (27-31) pg MCHC (32-36) % Plt Count (150-400) K/uL Neut % (Auto) (36-66) % Lymph % (Auto) (24-44) % [place] % (Auto) (2-6) % Eos % (Auto) (2-4) % Baso % (Auto) (0-1) % Sodium (140-148) mmol/L Potassium (3.6-5.2) mmol/L Chloride (100-108) mmol/L Carbon Dioxide (21-32) mmol/L Anion Gap (5.0-14.0) mmol/L BUN (7-18) mg/dL Creatinine (0.6-1.0) mg/dL Est Cr Clr Drug Dosing Estimated GFR (MDRD) (>60) Glucose (74-106) mg/dL Calcium (8.5-10.1) mg/dL Magnesium (1.8-2.4) mg/dL Total Bilirubin (0.2-1.0) mg/dL AST (15-37) U/L ALT (12-78) U/L Alkaline Phosphatase (46-116) U/L NT-Pro-B Natriuret Pep [id number] H (5-125) pg/mL Total Protein (6.4-8.2) g/dL Albumin (3.4-5.0) g/dL Globulin (2.3-3.5) g/dL Albumin/Globulin Ratio (1.2-2.2) Urine Color Yellow (YELLOW) Urine Appearance Clear (CLEAR) Urine pH >= 9.0 H (5.0-8.0) Ur Specific Angie 1.020 (1.008-1.030) Urine Protein >=300 H (NEGATIVE) mg/dL Urine Glucose (UA) 100 H (NEGATIVE) mg/dL Urine Ketones Negative (NEGATIVE) mg/dL Urine Occult Blood Small H (NEGATIVE) Urine Nitrite Negative (NEGATIVE) Urine Bilirubin Negative (NEGATIVE) Urine Urobilinogen 0.2 (0.2-1.0) EU/dL Ur Leukocyte Esterase Negative (NEGATIVE) Urine RBC 0-5 (0-5) Urine WBC 0-5 (0-5) Ur Epithelial Cells Rare Amorphous Sediment Rare Urine Bacteria Rare Urine Mucus Rare Urine Other See note Urinalysis Comment See note Urine Opiates Screen Negative (NEGATIVE) Ur Oxycodone Screen Presumptive positive H (NEGATIVE) Urine Methadone Screen Negative (NEGATIVE) Ur Propoxyphene Screen Negative (NEGATIVE) Ur Barbiturates Screen Negative (NEGATIVE) Ur Tricyclics Screen Negative (NEGATIVE) Ur Phencyclidine Scrn Negative (NEGATIVE) Ur Amphetamine Screen Negative (NEGATIVE) U Methamphetamines Scrn Negative (NEGATIVE) Urine MDMA Screen Negative (NEGATIVE) U Benzodiazepines Scrn Negative (NEGATIVE) U Cocaine Metab Screen Negative (NEGATIVE) U Marijuana (THC) Screen Negative (NEGATIVE) SARS CoV-2 RNA Rapid LATRELL 10/22/20 Range/Units 15:49 WBC (4.5-11.0) K/uL RBC (3.30-5.50) M/uL Hgb (12.0-15.0) g/dL Hct (36.0-48.0) % MCV (80-98) fL MCH (27-31) pg MCHC (32-36) % Plt Count (150-400) K/uL Neut % (Auto) (36-66) % Lymph % (Auto) (24-44) % [place] % (Auto) (2-6) % Eos % (Auto) (2-4) % Baso % (Auto) (0-1) % Sodium (140-148) mmol/L Potassium (3.6-5.2) mmol/L Chloride (100-108) mmol/L Carbon Dioxide (21-32) mmol/L Anion Gap (5.0-14.0) mmol/L BUN (7-18) mg/dL Creatinine (0.6-1.0) mg/dL Est Cr Clr Drug Dosing Estimated GFR (MDRD) (>60) Glucose (74-106) mg/dL Calcium (8.5-10.1) mg/dL Magnesium (1.8-2.4) mg/dL Total Bilirubin (0.2-1.0) mg/dL AST (15-37) U/L ALT (12-78) U/L Alkaline Phosphatase (46-116) U/L NT-Pro-B Natriuret Pep (5-125) pg/mL Total Protein (6.4-8.2) g/dL Albumin (3.4-5.0) g/dL Globulin (2.3-3.5) g/dL Albumin/Globulin Ratio (1.2-2.2) Urine Color (YELLOW) Urine Appearance (CLEAR) Urine pH (5.0-8.0) Ur Specific Angie (1.008-1.030) Urine Protein (NEGATIVE) mg/dL Urine Glucose (UA) (NEGATIVE) mg/dL Urine Ketones (NEGATIVE) mg/dL Urine Occult Blood (NEGATIVE) Urine Nitrite (NEGATIVE) Urine Bilirubin (NEGATIVE) Urine Urobilinogen (0.2-1.0) EU/dL Ur Leukocyte Esterase (NEGATIVE) Urine RBC (0-5) Urine WBC (0-5) Ur Epithelial Cells Amorphous Sediment Urine Bacteria Urine Mucus Urine Other Urinalysis Comment Urine Opiates Screen (NEGATIVE) Ur Oxycodone Screen (NEGATIVE) Urine Methadone Screen (NEGATIVE) Ur Propoxyphene Screen (NEGATIVE) Ur Barbiturates Screen (NEGATIVE) Ur Tricyclics Screen (NEGATIVE) Ur Phencyclidine Scrn (NEGATIVE) Ur Amphetamine Screen (NEGATIVE) U Methamphetamines Scrn (NEGATIVE) Urine MDMA Screen (NEGATIVE) U Benzodiazepines Scrn (NEGATIVE) U Cocaine Metab Screen (NEGATIVE) U Marijuana (THC) Screen (NEGATIVE) SARS CoV-2 RNA Rapid LATRELL Negative Meds: Medications Discontinued Medications Generic Name Dose Route Start Last Admin Trade Name Danny PRN Reason Stop Dose Admin Isosorbide Mononitrate 60 mg 10/22/20 13:34 10/22/20 14:00 Imdur PO 10/22/20 13:35 60 mg ONETIME ONE Administration Losartan Potassium 100 mg 10/22/20 13:30 10/22/20 13:49 Cozaar PO 10/22/20 13:31 100 mg ONETIME ONE Administration Minoxidil 2.5 mg 10/22/20 13:38 10/22/20 13:49 Loniten PO 10/22/20 13:39 2.5 mg DAILY ONE Administration Ondansetron HCl 4 mg 10/22/20 13:43 10/22/20 13:49 Zofran Odt PO 10/22/20 13:44 4 mg ONETIME ONE Administration - Re-Assessments/Exams Free Text/Narrative Re-Assessment/Exam: 10/22/20 15:27 pt was given some of her meds imdur and losarten, minoxidil and her bp did come down quite nicely. As history was obtained she has not been compliant with her meds because she is lethargic and is nauseated alot of the time. She hd only taken one med today the hydralzine. Her chest xray does reveal congestion. When she is moved around she desats to the 80s. Her sob started about 3-4 days ago. She was covid positive in May. She has a very high bnp. Departure - Departure Time of Disposition: 16:10 Disposition: DC/Tfer to Acute Hospital 02 Condition: Fair Clinical Impression: CHF (congestive heart failure), Renal insufficiency, Nausea, Nonadherence to medication Hypertension Qualifiers: Hypertension type: renovascular hypertension Qualified Code(s): I15.0 - Renovascular hypertension - Discharge Information Referrals: PCP,None [Primary Care Provider] - Forms: ED Department Discharge Care Plan Goals: transfer to [facility]. Sepsis Event Note (ED) - Focused Exam Vital Signs: Vital Signs Temp Pulse Resp BP BP Pulse Ox 10/22/20 16:03 75 158/67 H 10/22/20 15:22 76 178/64 H 10/22/20 14:56 75 192/81 H 10/22/20 14:00 251/95 H 10/22/20 13:49 251/95 H 10/22/20 13:18 76 17 251/90 H 93 L 10/22/20 12:59 37.0 C 73 16 251/95 H 93 L 10/22/20 12:54 37.0 C 73 16 251/95 H 93 L - My Orders Last 24 Hours: My Active Orders 10/22/20 15:24 EKG Documentation Completion [RC] ASDIRECTED EKG 12 Lead [EK] Routine 10/22/20 15:47 TROPONIN I [CHEM] Stat - Assessment/Plan Last 24 Hours: My Active Orders 10/22/20 15:24 EKG Documentation Completion [RC] ASDIRECTED EKG 12 Lead [EK] Routine 10/22/20 15:47 TROPONIN I [CHEM] Stat
[2020-10-22] MEDS ORDERED: Losartan 50 MG Tab PO ONE (13:30)
[2020-10-22] MEDS ORDERED: Isosorbide Mononitrate 30 MG Tab.ER PO ONE (13:34)
[2020-10-22] MEDS ORDERED: Minoxidil 2.5 MG Tab PO ONE (13:38)
[2020-10-22] MEDS ORDERED: Ondansetron 4 MG Tab.DIS PO ONE (13:43)
--- NOTE | 2020-10-22 14:52 | CR ---
CHEST: Portable 10/22/2020 at 2:00 PM CLINICAL HISTORY:SOB COMPARISON:03/11/2020 FINDINGS: [Catheter remains in place. Heart is mildly enlarged pulmonary vascularity appears cephalized. There is some interstitial prominence bilaterally. There is some patchy density in the lung bases. Some of this is chronic. IMPRESSION: Some vascular cephalization and prominence of interstitial lung markings suggest possible CHF. There is patchy densities in both lung bases. Some of this was present on prior studies. Superimposed pneumonitis cannot be excluded.
[2020-10-22 16:28] VITALS: BP 163/74; PULSE 74
== END 2020-10-22 17:08 ==
LOC: JP.ED 12:48
DX: I15.0 Renovascular hypertension (principal); I25.10 Atherosclerotic heart disease of native coronary artery without angina pectoris; E78.00 Pure hypercholesterolemia, unspecified; I11.0 Hypertensive heart disease with heart failure; J45.909 Unspecified asthma, uncomplicated; K21.9 Gastro-esophageal reflux disease without esophagitis; N28.9 Disorder of kidney and ureter, unspecified; R11.0 Nausea; E11.9 Type 2 diabetes mellitus without complications; Z91.14 Patient's other noncompliance with medication regimen; Z20.822 Contact with and (suspected) exposure to COVID-19; Z88.6 Allergy status to analgesic agent; Z88.8 Allergy status to other drugs, medicaments and biological substances; Z79.02 Long term (current) use of antithrombotics/antiplatelets; Z79.4 Long term (current) use of insulin; Z79.899 Other long term (current) drug therapy
CPT/HCPCS: 36415; 71045; 71045-26; 80053; 80305-QW; 81001; 83735; 83880; 84484; 85025; 93005; 93010; 99285-25; A9270-GY; U0002

== ENCOUNTER 2020-11-02 17:54 | Emergency (ER) | payer MEDICAID ==
--- NOTE | 2020-11-02 18:22 | EDM.PDOC ---
ED HPI GENERAL MEDICAL PROBLEM - General Chief Complaint: General Stated Complaint: MEDICAL [facility]IA [facility] Time Seen by Provider: 11/02/20 18:10 Source of Information: Reports: Patient, EMS History Limitations: Reports: Other (Patient is very lethargic) - History of Present Illness INITIAL COMMENTS - FREE TEXT/NARRATIVE: Elvia is a 55-year-old female who presents to the ED via [facility] from [place], [place] for evaluation of increased dyspnea. Patient has a history significant for hypertension, end-stage renal disease on hemodialysis and significant coronary artery and peripheral vascular disease. She is status post bilateral below hip amputations presumably due to her peripheral vascular disease. She has been relatively noncompliant with management of her medical care and last took her medications yesterday. She was recently hospitalized from 10/22/2019 to 10/30/[address] [facility] where she received hemodialysis last on Wednesday. She normally has a run on Wednesday, Wednesday, Wednesday. They did not pick her up for hemodialysis on Wednesday. She dialyzes at [facility]. She states that nobody from the dialysis center sent of vehicle to pick her up, nor did they call or check on her like they would typically do if she did not show up to dialysis. Patient also reports that she has not slept in the last 2 to 3 days due to the increasing dyspnea. She arrives to the ED with a blood pressure 150/74 and a heart rate of 67. She is extremely lethargic and falls asleep when not interacting. She does not normally use oxygen at home. Her SPO2 here is 97% on room air. neck Pain Score (Numeric/FACES): 8 - Related Data Allergies Allergy/AdvReac Type Severity Reaction Status Date / Time ibuprofen Allergy Cannot Verified 11/02/20 18:08 Remember NSAIDS (Non-Steroidal Allergy Cannot Verified 11/02/20 18:08 Anti-Inflamma Remember Home Meds: Home Meds amLODIPine Besylate [Amlodipine Besylate] 10 mg PO DAILY 06/06/13 [History] atorvaSTATin [Lipitor] 40 mg PO BEDTIME 06/06/13 [History] Clopidogrel [Plavix] 75 mg PO DAILY 04/27/14 [History] Acetaminophen [Pain Relief] 325 mg PO QID PRN 03/10/20 [History] Cinacalcet [Sensipar] 30 mg PO DAILY 03/10/20 [History] Docusate Sodium/Sennosides [Senokot-S] 2 each PO BID PRN 03/10/20 [History] Famotidine [Pepcid] 20 mg PO DAILY 03/10/20 [History] Folic Acid/Vitamin B Comp W-C [Nephrocaps Softgel] 1 tab PO DAILY 03/10/20 [History] Insulin Aspart [NovoLOG] 0 unit SQ WITHMEALSANDBED PRN 03/10/20 [History] Insulin Detemir [Levemir Flextouch] 5 - 10 unit SQ BEDTIME 03/10/20 [History] QUEtiapine [SEROquel] 12.5 mg PO BID 03/10/20 [History] hydrALAZINE [Apresoline] 100 mg PO TID 03/10/20 [History] hydrOXYzine HCL [Hydroxyzine HCl] 25 mg PO TID PRN 03/10/20 [History] Escitalopram Oxalate [Lexapro] 10 mg PO DAILY 10/22/20 [History] Isosorbide Mononitrate [Imdur] 60 mg PO DAILY 10/22/20 [History] Losartan [Cozaar] 100 mg PO DAILY 10/22/20 [History] Albuterol/Ipratropium [Combivent Respimat] 2 puff IH QID PRN 11/02/20 [History] Aspirin [Halfprin] 81 mg PO DAILY 11/02/20 [History] Cadexomer Iodine [Iodoflex] 1 each TP Q72H 11/02/20 [History] Cholecalciferol (Vitamin D3) [Vitamin D3] 1,000 unit PO DAILY 11/02/20 [History] Gabapentin [Neurontin] 300 mg PO ASDIRECTED 11/02/20 [History] Sevelamer HCl [Renagel] 800 mg PO TIDMEALS 11/02/20 [History] cloNIDine [cloNIDine HCl] 0.1 mg PO TID 11/02/20 [History] polyethylene glycoL 3350 [MiraLAX] 3 tsp PO DAILY PRN 11/02/20 [History] Past Medical History - Past Health History Medical/Surgical History: Denies Medical/Surgical History HEENT History: Reports: Cataract, Impaired Vision Cardiovascular History: Reports: CAD, Heart Murmur, High Cholesterol, Hypertension Respiratory History: Reports: Asthma, Pneumonia, Recurrent, Other (See Below) Other Respiratory History: reactive airway Gastrointestinal History: Reports: Cholelithiasis, GERD, GI Bleed, Other (See Below) Other Gastrointestinal History: bleeding ulcer Genitourinary History: Reports: Acute Renal Failure, Dialysis Other Genitourinary History: Dialysis 3 times a week since 2013 [employer]KEEPER HEAD History: Reports: , Spontaneous Musculoskeletal History: Reports: Amputation Neurological History: Reports: TIA Psychiatric History: Reports: Addiction, Anxiety, Depression, Panic Attack Endocrine/Metabolic History: Reports: Diabetes, Type II, Obesity/BMI 30+ Hematologic History: Reports: Anticoagulation Therapy, Blood Transfusion(s) Immunologic History: Reports: Other (See Below) Other Immunologic History: gangrene bilateral legs Dermatologic History: Reports: Other (See Below) - Infectious Disease History Infectious Disease History: Reports: Chicken Pox, Novel Coronavirus Other Infectious Disease History: unknown - Past Surgical History Head Surgeries/Procedures: Reports: None HEENT Surgical History: Reports: None Cardiovascular Surgical History: Reports: None Respiratory Surgical History: Reports: None GI Surgical History: Reports: Cholecystectomy, Colonoscopy, EGD Endocrine Surgical History: Reports: None Neurological Surgical History: Reports: None Musculoskeletal Surgical History: Reports: Amputation Other Musculoskeletal Surgeries/Procedures:: bilateral above the knee secondary to gangrene - History Comment History Comment: The patient states that her previous diabetes and kidney care has occurred through show in [place] Social & Family History - Tobacco Use Tobacco Use Status *Q: Former Tobacco User Years of Tobacco use: 35 Packs/Tins Daily: 1 Used Tobacco, but Quit: Yes Month/Year Tobacco Last Used: 2010 Second Hand Smoke Exposure: No - Caffeine Use Caffeine Use: Reports: Coffee - Recreational Drug Use Recreational Drug Use: No ED ROS GENERAL - Review of Systems Review Of Systems: See Below Constitutional: Reports: Malaise, Fatigue, Other (Not able to sleep). Denies: Fever, Chills HEENT: Reports: No Symptoms Respiratory: Reports: Shortness of Breath (Increasing shortness of breath including orthopnea). Denies: Cough Cardiovascular: Reports: Blood Pressure Problem Endocrine: Reports: Fatigue GI/Abdominal: Reports: No Symptoms : Reports: Other (Patient is oliguric on hemodialysis) Musculoskeletal: Reports: No Symptoms, Other (Bilateral below hip amputations) Skin: Denies: Change in Color Neurological: Reports: No Symptoms Psychiatric: Reports: No Symptoms Hematologic/Lymphatic: Reports: No Symptoms Immunologic: Reports: No Symptoms ED EXAM, GENERAL - Physical Exam Exam: See Below Exam Limited By: No Limitations General Appearance: Anxious, Lethargic, Mild Distress Eye Exam: Bilateral Eye: EOMI, PERRL Throat/Mouth: Normal Oropharynx, Normal Voice, Other (Relatively edentulous) Head: Atraumatic, Normocephalic Neck: Normal Inspection, Supple, Non-Tender Respiratory/Chest: No Accessory Muscle Use, Rales (Bilateral bases). No: Accessory Muscle Use, Retractions Cardiovascular: Normal Peripheral Pulses, Regular Rate, Rhythm, No Murmur, JVD (6 cm sitting at 90 degrees) Peripheral Pulses: 2+: Radial (L), Radial (R) GI/Abdominal: Normal Bowel Sounds, Soft, Non-Tender Back Exam: Full Range of Motion Extremities: Normal Inspection (Upper extremities), Normal Range of Motion (Upper extremities) Neurological: Oriented, Normal Cognition, No Motor/Sensory Deficits Psychiatric: Normal Affect, Normal Mood Skin Exam: Warm, Dry Lymphatic: No Adenopathy #1 Interpretation EKG Date: 11/02/20 Time: 18:56 Rhythm: NSR (Sinus arrhythmia) Rate (Beats/Min): 76 [place]: Other (Left anterior fascicular block) P-Wave: Present (Significantly prolonged ME interval at 264 ms) QRS: Normal (LVH by voltage criteria) ST-T: Other (Peaked T waves in V2 and V3) QT: Prolonged (Corrected QTC is 507 ms) Comparison: Change From Previous EKG Course - Vital Signs Last Recorded V/S: Last Vital Signs Temp 36.6 C 11/02/20 18:30 Pulse 52 L 11/02/20 18:30 Resp 16 11/02/20 18:30 BP 150/74 H 11/02/20 18:30 Pulse Ox 97 11/02/20 18:30 - Orders/Labs/Meds Orders: Active Orders 24 hr Category Date Time Status EKG Documentation Completion [RC] ASDIRECTED Care 11/02/20 18:12 Active Chest 1V Frontal [CR] Stat Exams 11/02/20 18:11 Taken COVID-19/FLU A+B/RSV [MOLEC] Stat Lab 11/02/20 18:16 Ordered Sodium Chloride 0.9% [Saline Flush] Med 11/02/20 19:13 Ordered 10 ml FLUSH ASDIRECTED PRN Saline Lock Insert [OM.PC] Routine Oth 11/02/20 19:13 Ordered EKG 12 Lead [EK] Routine Ther 11/02/20 18:11 Ordered Medication Orders Sodium Chloride (Saline Flush) 10 ml FLUSH ASDIRECTED PRN PRN Reason: Keep Vein Open Last Admin: 11/02/20 19:24 Dose: 10 ml Documented by: ANDREA Labs: Laboratory Tests 11/02/20 11/02/20 Range/Units 18:39 18:39 WBC 6.9 (4.5-11.0) K/uL RBC 3.47 (3.30-5.50) M/uL Hgb 10.5 L (12.0-15.0) g/dL Hct 33.5 L (36.0-48.0) % MCV 97 (80-98) fL MCH 30 (27-31) pg MCHC 31 L (32-36) % Plt Count 238 (150-400) K/uL Neut % (Auto) 77 H (36-66) % Lymph % (Auto) 13 L (24-44) % [place] % (Auto) 7 H (2-6) % Eos % (Auto) 2 (2-4) % Baso % (Auto) 0 (0-1) % Sodium 138 L (140-148) mmol/L Potassium 7.3 H* (3.6-5.2) mmol/L Chloride 99 L (100-108) mmol/L Carbon Dioxide 31 (21-32) mmol/L Anion Gap 15.3 H (5.0-14.0) mmol/L BUN 52 H D (7-18) mg/dL Creatinine 7.4 H* (0.6-1.0) mg/dL Est Cr Clr Drug Dosing TNP Estimated GFR (MDRD) 6 L (>60) Glucose 84 (74-106) mg/dL Calcium 9.1 (8.5-10.1) mg/dL Total Bilirubin 0.6 (0.2-1.0) mg/dL AST 17 (15-37) U/L ALT 14 D (12-78) U/L Alkaline Phosphatase 87 (46-116) U/L Troponin I 0.022 (0.000-0.056) ng/mL NT-Pro-B Natriuret Pep 57267 H (5-125) pg/mL Total Protein 7.3 (6.4-8.2) g/dL Albumin 3.1 L (3.4-5.0) g/dL Globulin 4.2 H (2.3-3.5) g/dL Albumin/Globulin Ratio 0.7 L (1.2-2.2) Meds: Medications Generic Name Dose Route Start Last Admin Trade Name Freq PRN Reason Stop Dose Admin Sodium Chloride 10 ml 11/02/20 19:13 11/02/20 19:24 Saline Flush FLUSH 10 ml ASDIRECTED PRN Administration Keep Vein Open Discontinued Medications Generic Name Dose Route Start Last Admin Trade Name Freq PRN Reason Stop Dose Admin Acetaminophen 650 mg 11/02/20 18:43 11/02/20 18:50 Tylenol PO 11/02/20 18:44 650 mg NOW ONE Administration Calcium Chloride 1 gm 11/02/20 19:13 11/02/20 19:24 Calcium Chloride 10% IVPUSH 11/02/20 19:14 1 gm ONETIME ONE Administration - Re-Assessments/Exams Free Text/Narrative Re-Assessment/Exam: 11/02/20 19:10 lab called to notify us of a critically high potassium at 7.3. In addition, the patient's creatinine is up to 7.2. EKG shows significantly peaked T waves in V2 and V3. We initiated infusion with calcium chloride 1 g IV to stabilize a cardiac membrane. Review of the chest x-ray shows significant bilateral pulmonary edema. I will arrange for the patient to transfer back to [facility] for hemodialysis. 11/02/20 19:27 I discussed the case with Dr. Donaldson from the emergency room at [facility] who accepts the patient in transfer. We will arrange for transport via [facility]. Departure - Departure Time of Disposition: 19:20 Disposition: DC/Tfer to Other 70 Condition: Serious Clinical Impression: Hyperkalemia, Nonadherence to medication, Dialysis patient, noncompliant, Volume overload Chronic kidney disease (CKD) Qualifiers: Chronic kidney disease stage: on chronic dialysis Qualified Code(s): N18.6 - End stage renal disease; Z99.2 - Dependence on renal dialysis HTN (hypertension) Qualifiers: Hypertension type: renovascular hypertension Qualified Code(s): I15.0 - Renovascular hypertension CHF (congestive heart failure) Qualifiers: Heart failure type: unspecified Heart failure chronicity: acute on chronic Qualified Code(s): I50.9 - Heart failure, unspecified - Discharge Information *PRESCRIPTION DRUG MONITORING PROGRAM REVIEWED*: Not Applicable *COPY OF PRESCRIPTION DRUG MONITORING REPORT IN PATIENT DARIANA: Not Applicable Referrals: PCP,None [Primary Care Provider] - Forms: ED Department Discharge Care Plan Goals: We are arranging transfer of the patient to [facility] for hemodialysis and further care. Sepsis Event Note (ED) - Focused Exam Vital Signs: Vital Signs Temp Pulse Resp BP Pulse Ox 11/02/20 18:30 36.6 C 52 L 16 150/74 H 97 - Problem List & Annotations (1) HTN (hypertension) SNOMED Code(s): 10706529 Code(s): I10 - ESSENTIAL (PRIMARY) HYPERTENSION Status: Chronic Priority: High Current Visit: Yes Qualifiers: Hypertension type: renovascular hypertension Qualified Code(s): I15.0 - Renovascular hypertension (2) Chronic kidney disease (CKD) SNOMED Code(s): 838858044 Code(s): N18.9 - CHRONIC KIDNEY DISEASE, UNSPECIFIED Status: Chronic Priority: High Current Visit: Yes (3) CHF (congestive heart failure) SNOMED Code(s): 61321096 Code(s): I50.9 - HEART FAILURE, UNSPECIFIED Status: Chronic Priority: High Current Visit: Yes (4) Dialysis patient, noncompliant SNOMED Code(s): 577965507840971 Code(s): Z91.15 - PATIENT'S NONCOMPLIANCE WITH RENAL DIALYSIS Status: Chronic Priority: High Current Visit: Yes (5) Hyperkalemia SNOMED Code(s): 17902212 Code(s): E87.5 - HYPERKALEMIA Status: Acute Priority: High Current Visit: Yes (6) Volume overload SNOMED Code(s): 91603174 Code(s): E87.70 - FLUID OVERLOAD, UNSPECIFIED Status: Acute Priority: High Current Visit: Yes - Problem List Review Problem List Initiated/Reviewed/Updated: Yes - My Orders Last 24 Hours: My Active Orders 11/02/20 18:11 Chest 1V Frontal [CR] Stat EKG 12 Lead [EK] Routine 11/02/20 18:12 EKG Documentation Completion [RC] ASDIRECTED 11/02/20 18:16 COVID-19/FLU A+B/RSV [MOLEC] Stat 11/02/20 19:13 Sodium Chloride 0.9% [Saline Flush] 10 ml FLUSH ASDIRECTED PRN Saline Lock Insert [OM.PC] Routine - Assessment/Plan Last 24 Hours: My Active Orders 11/02/20 18:11 Chest 1V Frontal [CR] Stat EKG 12 Lead [EK] Routine 11/02/20 18:12 EKG Documentation Completion [RC] ASDIRECTED 11/02/20 18:16 COVID-19/FLU A+B/RSV [MOLEC] Stat 11/02/20 19:13 Sodium Chloride 0.9% [Saline Flush] 10 ml FLUSH ASDIRECTED PRN Saline Lock Insert [OM.PC] Routine
[2020-11-02] MEDS ORDERED: Acetaminophen 325 MG Tab PO ONE (18:43)
[2020-11-02] MEDS ORDERED: Calcium Chloride 10% 1 GM/10 ML Syringe IVPUSH ONE (19:13)
[2020-11-02] MEDS ORDERED: Sodium Chloride 0.9% 10 ML Syringe FLUSH PRN (19:13)
[2020-11-02 19:40] VITALS: BP 213/80; PULSE 75
[2020-11-02] MEDS ORDERED: hydrALAZINE 20 MG/ML SDV IVPUSH PRN (19:55)
[2020-11-02 20:24] LABS: CORONAVIRUS COVID-19 NAA NEGATIVE (NEGATIVE)
--- NOTE | 2020-11-04 09:06 | CR ---
CHEST: Portable 11/02/2020 at 1836 CLINICAL HISTORY:Dyspnea COMPARISON:10/22/2020 FINDINGS: Heart size is enlarged. Pulmonary vascular areas cephalized. There is diffuse interstitial prominence which has increased since prior study. There are no effusions. Patient has a left jugular double-lumen catheter. Tip is in the upper right atrium. IMPRESSION: Diffuse bilateral predominantly interstitial infiltrates suggests pulmonary edema from CHF. Pneumonitis is felt less likely but not excluded. Cardiomegaly
== END 2020-11-02 20:09 ==
LOC: JP.ED 17:54
DX: I15.0 Renovascular hypertension (principal); I13.2 Hypertensive heart and chronic kidney disease with heart failure and with stage 5 chronic kidney disease, or end stage renal disease; I50.9 Heart failure, unspecified; N18.6 End stage renal disease; E87.70 Fluid overload, unspecified; E87.5 Hyperkalemia; I25.10 Atherosclerotic heart disease of native coronary artery without angina pectoris; E78.00 Pure hypercholesterolemia, unspecified; J45.909 Unspecified asthma, uncomplicated; K21.9 Gastro-esophageal reflux disease without esophagitis; E11.22 Type 2 diabetes mellitus with diabetic chronic kidney disease; E66.9 Obesity, unspecified; Z87.891 Personal history of nicotine dependence; Z68.45 Body mass index [BMI] 70 or greater, adult; Z91.14 Patient's other noncompliance with medication regimen; Z99.2 Dependence on renal dialysis; Z88.6 Allergy status to analgesic agent; Z88.8 Allergy status to other drugs, medicaments and biological substances; Z79.02 Long term (current) use of antithrombotics/antiplatelets; Z79.82 Long term (current) use of aspirin; Z79.4 Long term (current) use of insulin; Z79.899 Other long term (current) drug therapy; Z86.73 Personal history of transient ischemic attack (TIA), and cerebral infarction without residual deficits
CPT/HCPCS: 0241U; 36415; 71045; 80053; 83880; 84484; 85025; 93005; 96374; 96375; 99285; A9270; J0360; 93010

== ENCOUNTER 2022-10-17 13:14 | Emergency (ER) | payer MEDICAID ==
[2022-10-17] MEDS ORDERED: Sodium Chloride 0.9% 10 ML Syringe FLUSH PRN (13:38)
[2022-10-17] MEDS ORDERED: Morphine 4 MG/ML Syringe IVPUSH PRN (13:38)
[2022-10-17] MEDS ORDERED: Nitroglycerin 0.4 MG Tab.SL SL PRN (13:38)
[2022-10-17] MEDS ORDERED: Aspirin 81 MG Tab.Chew PO ONE (13:38)
[2022-10-17] MEDS ORDERED: Acetaminophen/oxyCODONE 325-5 MG Tab PO PRN ×2 (14:02→19:16)
[2022-10-17 14:26] LABS: ESTIMATED GFR 7 mL/min (>60)
[2022-10-17 14:29] LABS: TROPONIN I HIGH SENSITIVITY 313.7 pg/mL (<=60.3)
[2022-10-17 16:05] VITALS: BP 106/59; PULSE 65
[2022-10-17] MEDS ORDERED: Heparin Sodium 5,000 Units/ML Vial IVPUSH ONE (17:38)
[2022-10-17] MEDS ORDERED: Heparin Sodium/D5W 25,000 UNITS/500 ML BAG IV SCH (17:45)
== END 2022-10-17 19:24 ==
LOC: JP.ED 13:14
DX: I24.9 Acute ischemic heart disease, unspecified (principal); I25.10 Atherosclerotic heart disease of native coronary artery without angina pectoris; E78.00 Pure hypercholesterolemia, unspecified; J45.909 Unspecified asthma, uncomplicated; K21.9 Gastro-esophageal reflux disease without esophagitis; I12.0 Hypertensive chronic kidney disease with stage 5 chronic kidney disease or end stage renal disease; E11.22 Type 2 diabetes mellitus with diabetic chronic kidney disease; N18.6 End stage renal disease; Z99.2 Dependence on renal dialysis; E66.9 Obesity, unspecified; Z68.45 Body mass index [BMI] 70 or greater, adult; Z88.6 Allergy status to analgesic agent; Z79.02 Long term (current) use of antithrombotics/antiplatelets; Z79.899 Other long term (current) drug therapy; Z79.4 Long term (current) use of insulin; Z79.82 Long term (current) use of aspirin; Z72.0 Tobacco use
CPT/HCPCS: 36415; 71045; 71045-26; 80053; 80307; 83605; 84484; 85025; 93005; 93010; 96365; 96375; 99285; 99285-25; A9270-GY; J1644